=== PATIENT | female | born 1965 | race Caucasian/White ===

== ENCOUNTER 2016-03-11 08:16 | Day surgery (SDC) | payer BC ==
[2016-03-08 10:15] VITALS: BMI 27.1
[~2016-03-11 08:16] MED LIST: LACTATED RINGERS 1,000 ML IV SCH; LIDOCAINE 1% 20 ML VIAL (10MG/ML) FOR IV START INTRADERMA PRN
[2016-03-11 09:02] VITALS: TEMP 98.7
[2016-03-11] MEDS ORDERED: LIDOCAINE 1% INJ 10MG/ML (20 ML MDV) ONE (09:30)
[2016-03-11] MEDS ORDERED: PROPOFOL 10 MG/ML 20 ML VIAL IV ONE (09:30)
--- NOTE | 2016-03-11 10:03 | P.PCN ---
Date of Procedure: 03/11/16 Procedure(s) Performed: Procedures: 1. Esophagogastroduodenoscopy and biopsy. 2. Total colonoscopy. Preoperative diagnosis: Chronic reflux symptoms requiring continuous therapy and recent onset of nausea and screening for colon cancer. Preoperative diagnosis: 1. Small sliding hiatal hernia with no obvious esophagitis or complicated reflux disease. 2. Mild antral gastritis with no ulcers or gastric outlet obstruction. 3. Diverticulosis of the colon with no evidence of acute diverticulitis or strictures. 4. No polyps or tumors seen on this exam. Preparation: HalfLytely prep. Sedation: Was provided by anesthesia. Brief clinical history: The patient is a 50-year-old female who is referred for this evaluation for screening for colon neoplasia. In addition, she has been having issues with acid reflux for the last few years requiring ongoing therapy with PPI. She would have recurrece of her symptoms within a day or 2 if she does not take her medications. In addition, she has been having nausea for the last month or so with no other alarm symptoms. This would be her first upper endoscopy and her first colonoscopy. Procedure: With the patient on her left lateral decubitus position and after informed consent and adequate sedation, I passed the Olympus-GIF 160 video upper endoscope through the cricopharyngeus down the esophagus. GE junction was around 36 cm from the incisors and there was a small sliding hiatal hernia. The esophagus did not show any evidence of esophagitis or complicated reflux disease. The endoscope was then passed into the stomach which was insufflated with air and inspected in detail including the retroflex view in the cardia. There was some mottling and erythema in the antrum but no ulcers or erosions. Pyloric channel, duodenal bulb, post bulbar area and descending duodenum appeared essentially within normal limits. Because of her symptoms I obtained biopsies from the duodenum, antrum and esophagus then the endoscope was withdrawn and I proceeded to do colonoscopy. Perianal area did not show any fissures or fistulas. There were no masses felt on digital rectal examination. The Olympus CFQ 160L videocolonoscope was then inserted in the rectum in the usual fashion and advanced to the cecum. The mucosa appeared healthy. There were multiple diverticular orifices seen scattered mostly in the sigmoid but some around the hepatic flexure with no evidence of acute diverticulitis or strictures. No polyps or tumors were seen. I retroflexed endoscope in the rectum before the endoscope was withdrawn. The patient tolerated the procedure well. Plan: The patient was reassured. Discussed dietary measures. Will await biopsy results and make further plans based on her course. For screening for colon neoplasia, I am recommending repeat exam in 10 years. She will follow-up with you as planned.
[2016-03-11 10:10] VITALS: RESP 18
[2016-03-11 10:30] VITALS: BP 115/74; PULSE 67
== END 2016-03-11 10:42 | disposition home or self-care (01) ==
LOC: ORWHC2ENDO 08:16
DX: Z12.11 Encounter for screening for malignant neoplasm of colon (principal); K29.50 Unspecified chronic gastritis without bleeding; K21.0 Gastro-esophageal reflux disease with esophagitis; K44.9 Diaphragmatic hernia without obstruction or gangrene; K57.30 Diverticulosis of large intestine without perforation or abscess without bleeding; E78.5 Hyperlipidemia, unspecified; I10 Essential (primary) hypertension; Z79.1 Long term (current) use of non-steroidal anti-inflammatories (NSAID); Z79.899 Other long term (current) drug therapy; Z88.1 Allergy status to other antibiotic agents; Z88.0 Allergy status to penicillin; Z88.5 Allergy status to narcotic agent
CPT/HCPCS: 81025; 88305; 88312; 88342; 43239; J2001; J2704; G0121; 99153

== ENCOUNTER → 2016-08-13 | Outpatient (CLI) | payer BC ==
--- NOTE | 2016-08-16 11:09 | MM ---
Reason for exam: screening (asymptomatic). Last mammogram was performed 1 year ago. History: Patient is nulliparous. Benign right mammotome panel of the right breast, May 26, 2007. Reductions of both breasts, June 01, 2006. Taking hormonal contraceptives for 9 years beginning at age 43. Physical Findings: A clinical breast exam by your physician is recommended on an annual basis and results should be correlated with mammographic findings. MG Screening Mammo w CAD Bilateral CC and MLO view(s) were taken. Prior study comparison: August 08, 2015, bilateral MG screening mammo w CAD. July 26, 2014, bilateral MG screening mammo w CAD. June 22, 2013, bilateral digital screening mammo w/CAD. There are scattered fibroglandular densities. Finding #1: There is stable architectural distortion in the upper quadrant of the left breast. Finding #2: There are typically benign dystrophic, round calcifications in the left breast. Previous mammotome biopsy in the right breast. There is no discrete abnormality. ASSESSMENT: Benign, BI-RAD 2 RECOMMENDATION: Routine screening mammogram of both breasts in 1 year.
== END | disposition home or self-care (01) ==
LOC: RADMAMWWP 13:21
PROVIDERS: ATTEND Obstetrics & Gynecology
DX: Z12.31 Encounter for screening mammogram for malignant neoplasm of breast (principal)

== ENCOUNTER → 2017-09-13 | Outpatient (CLI) | payer BC ==
--- NOTE | 2017-09-14 12:44 | MM ---
Reason for exam: screening (asymptomatic). Last mammogram was performed 1 year and 1 month ago. History: Patient is postmenopausal and is nulliparous. Benign right mammotome panel of the right breast, May 26, 2007. Reductions of both breasts, June 01, 2006. Taking hormonal contraceptives for 9 years beginning at age 43. Physical Findings: A clinical breast exam by your physician is recommended on an annual basis and results should be correlated with mammographic findings. MG 3D Screening Mammo W/Cad Bilateral CC and MLO view(s) were taken. Prior study comparison: August 13, 2016, bilateral MG screening mammo w CAD. August 08, 2015, bilateral MG screening mammo w CAD. The breast tissue is heterogeneously dense. This may lower the sensitivity of mammography. There is no discrete abnormality. No significant changes when compared with prior studies. ASSESSMENT: Benign, BI-RAD 2 RECOMMENDATION: Routine screening mammogram of both breasts in 1 year.
== END | disposition home or self-care (01) ==
LOC: RADMAMWWP 13:50
PROVIDERS: ATTEND Obstetrics & Gynecology
DX: Z12.31 Encounter for screening mammogram for malignant neoplasm of breast (principal)
CPT/HCPCS: 77063; 77067

== ENCOUNTER → 2018-09-15 | Outpatient (CLI) | payer BC ==
--- NOTE | 2018-09-18 11:40 | MM ---
Reason for exam: screening (asymptomatic). Last mammogram was performed 1 year ago. History: Patient is postmenopausal and is nulliparous. Benign right mammotome panel of the right breast, May 26, 2007. Reductions of both breasts, June 01, 2006. Took hormonal contraceptives for 9 years beginning at age 43. Physical Findings: A clinical breast exam by your physician is recommended on an annual basis and results should be correlated with mammographic findings. MG Screening Mammo w CAD Bilateral CC and MLO view(s) were taken. Prior study comparison: September 13, 2017, bilateral MG 3d screening mammo w/cad. August 13, 2016, bilateral MG screening mammo w CAD. There are scattered fibroglandular densities. Post mammoplasty changes on both sides. New right upper outer quadrant focal asymmetry. ASSESSMENT: Incomplete: need additional imaging evaluation, BI-RAD 0 RECOMMENDATION: Special view mammogram of the right breast. (3D) If lesion persists on supplemental views, image directed ultrasound is recommended. [facility] will attempt to contact patient to return for supplemental views and ultrasound if indicated.
== END | disposition home or self-care (01) ==
LOC: RADMAMWWP 13:28
PROVIDERS: ATTEND Family Medicine
DX: Z12.31 Encounter for screening mammogram for malignant neoplasm of breast (principal)
CPT/HCPCS: 77067

== ENCOUNTER → 2018-09-27 | Outpatient (CLI) | payer BC ==
--- NOTE | 2018-09-28 10:38 | MM ---
Reason for exam: additional evaluation requested from abnormal screening. Last mammogram was performed less than 1 month ago. History: Patient is postmenopausal and is nulliparous. Benign right mammotome panel of the right breast, May 26, 2007. Reductions of both breasts, June 01, 2006. Took hormonal contraceptives for 9 years beginning at age 43. Physical Findings: Nurse did not find any significant physical abnormalities on exam. MG Work Up Mamm w CAD RT Spot compression CC, spot compression MLO, and ML view(s) were taken of the right breast. Prior study comparison: September 15, 2018, bilateral MG screening mammo w CAD. September 13, 2017, bilateral MG 3d screening mammo w/cad. There are scattered fibroglandular densities. Persistent right upper outer quadrant focal asymmetry 6-7cm from nipple. Ultrasound will be performed. These results were verbally communicated with the patient and result sheet given to the patient on 09/27/18. ASSESSMENT: Incomplete: need additional imaging evaluation, BI-RAD 0 RECOMMENDATION: Ultrasound of the right breast. (upper outer quadrant)
--- NOTE | 2018-09-28 10:41 | USB ---
Reason for exam: additional evaluation requested from abnormal screening. History: Patient is postmenopausal and is nulliparous. Benign right mammotome panel of the right breast, May 26, 2007. Reductions of both breasts, June 01, 2006. Took hormonal contraceptives for 9 years beginning at age 43. US Breast Workup Limited RT Right limited breast ultrasound including focal area of concern, retroareolar and axilla demonstrates a 6 x 5 x 6mm oval, solid, hypoechoic, hyperechoic lesion at 10 o'clock, biopsy recommended and a 6mm oval lymph node at the axilla tail. These results were verbally communicated with the patient and result sheet given to the patient on 09/27/18. ASSESSMENT: Suspicious, BI-RAD 4 RECOMMENDATION: Ultrasound core biopsy of the right breast. Called Dr. Mathis with mammographic findings. Biopsy scheduled for 10/16/18 at 12:20. PRELIMINARY REPORT CALLED AND FAXED TO DR. MATHIS ON 09/28/18.
== END | disposition home or self-care (01) ==
LOC: RADMAMWWP 14:45
PROVIDERS: ATTEND Family Medicine
DX: R92.8 Other abnormal and inconclusive findings on diagnostic imaging of breast (principal)
CPT/HCPCS: 77065

== ENCOUNTER → 2018-10-16 | Day surgery (SDC) | payer BC, OTHER ==
[2018-10-16 09:56] VITALS: TEMP 98.6; BMI 24.3
[2018-10-16 12:03] VITALS: BP 138/39; PULSE 73
--- NOTE | 2018-10-16 15:57 | USB ---
EXAMINATION TYPE: US biopsy breast VAD RT, Postbiopsy MG diagnostic mammo RT wo CAD DATE OF EXAM: 10/16/2018 CLINICAL HISTORY: 52-year-old female R92.8 ABN MAMMO. TECHNIQUE: Ultrasound guided core biopsy of the right breast. COMPARISON: 09/27/2018 and 09/15/2018 FINDINGS: The procedure of ultrasound guided core biopsy was explained to the patient. Benefits, alternatives, and risks were discussed. An informed consent was then obtained. The echogenic, partially cystic lesion at the 10:00 position zone B/C is redemonstrated. A second similar, smaller area is noted at the 10-10:30 position measuring 4 mm. The patient was further question about any blood thinner use or breast injury. Patient reports a recent fall injury and additional occasional injuries during horse riding. There is no blood thinner use. Decision was made to proceed with biopsy of the dominant lesion. The patient was placed in supine positioning for imaging and for the procedure. The overlying skin was prepped and draped in usual sterile fashion. Lidocaine was used as anesthetic into the skin and subcutaneous tissue up to area of concern in the 10:00 right breast. Under ultrasound guidance, a 13-gauge vacuum-assisted mammotome biopsy gun was used to obtain 5 core samples. Following this, a ribbon clip was left in lesion. The patient tolerated the procedure well without any immediate complication. The patient was kept in the radiology department for short stay after the procedure and then discharged home in stable condition. Postbiopsy mammogram shows clip at the site of mammographic abnormality at the 9 to 10:00 position. IMPRESSION: Successful, uncomplicated ultrasound guided core biopsy of area of concern in the 10:00 right breast, full pathology results to follow. RECOMMENDATION: 1. Follow-up pathology. If benign results with a specific diagnosis, six-month follow-up mammogram and ultrasound is recommended. If results suggest a small hematoma, three-month follow-up mammogram and ultrasound will be recommended. The similar, second smaller adjacent lesion seen on ultrasound should also be reassessed at that time. Pathology Results: Benign RIGHT BREAST, CORE BIOPSY: Fibrocystic changes including fibroadenomatoid hyperplasia and fibrosis. Negative for malignancy. Recommendation Follow up mammogram and ultrasound of the right breast in 6 months. CARINE
== END | disposition home or self-care (01) ==
LOC: RADUSWWP 09:14
PROVIDERS: ATTEND Family Medicine
DX: N60.11 Diffuse cystic mastopathy of right breast (principal)
CPT/HCPCS: 88305; 77065; 19083; A4648; J2001

== ENCOUNTER → 2019-12-10 | Outpatient (CLI) | payer OTHER ==
--- NOTE | 2019-12-11 13:54 | MM ---
Reason for exam: screening (asymptomatic). Last mammogram was performed 1 year and 2 months ago. History: Patient is postmenopausal and is nulliparous. Benign US biopsy breast VAD RT of the right breast, October 16, 2018. Benign right mammotome panel of the right breast, May 26, 2007. Reductions of both breasts, June 01, 2006. Took hormonal contraceptives for 9 years beginning at age 43. Physical Findings: A clinical breast exam by your physician is recommended on an annual basis and results should be correlated with mammographic findings. MG Screening Mammo w CAD Bilateral CC and MLO view(s) were taken. Prior study comparison: October 16, 2018, right breast MG diagnostic mammo RT wo CAD. September 27, 2018, right breast MG work up mamm w CAD RT. There are scattered fibroglandular densities. Stable benign calcifications. There is no discrete abnormality. No significant changes when compared with prior studies. ASSESSMENT: Benign, BI-RAD 2 RECOMMENDATION: Routine screening mammogram of both breasts in 1 year.
== END | disposition home or self-care (01) ==
LOC: RADMAMWWP 13:07
PROVIDERS: ATTEND Obstetrics & Gynecology
DX: Z12.31 Encounter for screening mammogram for malignant neoplasm of breast (principal)
CPT/HCPCS: 77067

== ENCOUNTER 2020-05-20 14:04 | Inpatient (IN) | payer OTHER ==
[2020-05-20] MEDS ORDERED: SODIUM CHLORIDE 0.9% 1,000 ML IV STA (14:09)
[2020-05-20 14:10] LABS: Glucose,Whole Blood 123 mg/dL (75-99)
--- NOTE | 2020-05-20 14:16 | ED ---
General Adult HPI - General Stated complaint: sycope Time Seen by Provider: 05/20/20 14:09 Source: patient, EMS, RN notes reviewed, old records reviewed Mode of arrival: EMS Limitations: no limitations - History of Present Illness Initial comments: 54-year-old female presents for evaluation of altered level consciousness, slurred speech, and near syncope. Patient was on local television, B recorded, she had an episode where she became dysarthric, and nearly passed out. She states that she did feel lightheaded prior to this. She is completely asymptomatic at the time my evaluation. She denies chest pain or palpitations. She denies fever or chills. She denies headache. Denies focal numbness or weakness. Patient is otherwise healthy. Symptoms lasted only briefly and will resolve during transport by EMS. - Related Data Home Medications Medication Instructions Recorded Confirmed Omeprazole 40 mg PO AC-BRKFST 08/01/15 05/20/20 Simvastatin [Zocor] 20 mg PO DAILY 08/01/15 05/20/20 Atenolol [Tenormin] 50 mg PO DAILY 05/20/20 05/20/20 Losartan Potassium [Cozaar] 100 mg PO DAILY 05/20/20 05/20/20 Venlafaxine HCl [Effexor XR] 75 mg PO BID 05/20/20 05/20/20 busPIRone HCL 15 mg PO BID 05/20/20 05/20/20 hydroCHLOROthiazide 25 mg PO DAILY 05/20/20 05/20/20 Allergies Allergy/AdvReac Type Severity Reaction Status Date / Time morphine Allergy Itching Verified 05/20/20 15:14 Penicillins Allergy Itching Verified 05/20/20 15:14 ciprofloxacin [From Cipro] AdvReac Unknown Nausea Verified 05/20/20 15:14 Review of Systems ROS Statement: Those systems with pertinent positive or pertinent negative responses have been documented in the HPI. ROS Other: All systems not noted in ROS Statement are negative. Past Medical History Past Medical History: GERD/Reflux, Hyperlipidemia, Hypertension Additional Past Medical History / Comment(s): hypothyroidism (resolved with 40 pound weight loss) History of Any Multi-Drug Resistant Organisms: None Reported Past Surgical History: Breast Surgery, Uterine Ablation Additional Past Surgical History / Comment(s): bilateral breast reduction x2, bone spur right hip, panniculectomy Past Anesthesia/Blood Transfusion Reactions: No Reported Reaction Additional Past Anesthesia/Blood Transfusion Reaction / Comment(s): NO blood transfusion to date Past Psychological History: Depression Smoking Status: Never smoker Past Alcohol Use History: Daily Past Drug Use History: Marijuana - Past Family History Mother Family Medical History: Cancer Additional Family Medical History / Comment(s): at age 63 from LUNG CANCER General Exam Limitations: no limitations General appearance: alert, in no apparent distress Head exam: Present: atraumatic, normocephalic Eye exam: Present: normal appearance, PERRL, EOMI ENT exam: Present: mucous membranes dry Neck exam: Present: normal inspection. Absent: tenderness, meningismus Respiratory exam: Present: normal lung sounds bilaterally. Absent: respiratory distress, wheezes Cardiovascular Exam: Present: regular rate, normal rhythm GI/Abdominal exam: Present: soft. Absent: distended, tenderness, guarding Extremities exam: Present: normal inspection, normal capillary refill. Absent: pedal edema Neurological exam: Present: alert, oriented X3, CN II-XII intact. Absent: motor sensory deficit Psychiatric exam: Present: normal affect, normal mood Skin exam: Present: warm, dry, intact. Absent: cyanosis, diaphoretic Course Vital Signs 05/20/20 05/20/20 14:05 15:00 Temperature 97.9 F Pulse Rate 68 70 Respiratory 18 18 Rate Blood Pressure 142/89 128/86 O2 Sat by Pulse 100 98 Oximetry EKG Findings - EKG Comments: EKG Findings:: EKG: Normal sinus rhythm, rate 68, WI interval 146, QRS duration 90, QTC 444, there is T-wave inversion in lead 3 Medical Decision Making - Medical Decision Making 54-year-old female presenting with altered level consciousness, slurred speech. I was able to wash the video, and there was an acute change in this patient's mental status, she states she felt lightheaded prior to this. This may been near syncope versus TIA. Her symptoms have completely resolved. Head CT negative for intracranial hemorrhage or mass effect. EKG is sinus rhythm. She has elected abnormality including hyponatremia, hypokalemia. These are both replaced with IV and oral medication. She does admit to daily alcohol consumption. Additionally she's had nausea vomiting after coronavirus vaccine. She has no abdominal pain. She will be admitted with both cardiology and neurology on consult. Echo has been ordered. She will be monitored on telemetry. Case discussed with Dr. Hester who will admit. - Lab Data Result diagrams: 05/20/20 14:12 05/20/20 14:12 Lab Results 05/20/20 05/20/20 05/20/20 Range/Units 14:07 14:12 14:12 WBC 8.0 (3.8-10.6) k/uL RBC 4.07 (3.80-5.40) m/uL Hgb 13.6 (11.4-16.0) gm/dL Hct 37.3 (34.0-46.0) % MCV 91.6 (80.0-100.0) fL MCH 33.3 (25.0-35.0) pg MCHC 36.3 (31.0-37.0) g/dL RDW 11.8 (11.5-15.5) % Plt Count 319 (150-450) k/uL MPV 6.7 Neutrophils % 63 % Lymphocytes % 27 % Monocytes % 7 % Eosinophils % 1 % Basophils % 1 % Neutrophils # 5.1 (1.3-7.7) k/uL Lymphocytes # 2.2 (1.0-4.8) k/uL Monocytes # 0.6 (0-1.0) k/uL Eosinophils # 0.1 (0-0.7) k/uL Basophils # 0.1 (0-0.2) k/uL PT 10.1 (9.0-12.0) sec INR 0.9 (<1.2) APTT 22.7 (22.0-30.0) sec Sodium (137-145) mmol/L Potassium (3.5-5.1) mmol/L Chloride (98-107) mmol/L Carbon Dioxide (22-30) mmol/L Anion Gap mmol/L BUN (7-17) mg/dL Creatinine (0.52-1.04) mg/dL Est GFR (CKD-EPI)AfAm (>60 ml/min/1.73 sqM) Est GFR (CKD-EPI)NonAf (>60 ml/min/1.73 sqM) Glucose (74-99) mg/dL POC Glucose (mg/dL) 123 H (75-99) mg/dL POC Glu Pie Filling Mixer ID [id number] Rosa Calcium (8.4-10.2) mg/dL Total Bilirubin (0.2-1.3) mg/dL AST (14-36) U/L ALT (4-34) U/L Alkaline Phosphatase (38-126) U/L Troponin I (0.000-0.034) ng/mL Total Protein (6.3-8.2) g/dL Albumin (3.5-5.0) g/dL 05/20/20 05/20/20 Range/Units 14:12 14:12 WBC (3.8-10.6) k/uL RBC (3.80-5.40) m/uL Hgb (11.4-16.0) gm/dL Hct (34.0-46.0) % MCV (80.0-100.0) fL MCH (25.0-35.0) pg MCHC (31.0-37.0) g/dL RDW (11.5-15.5) % Plt Count (150-450) k/uL MPV Neutrophils % % Lymphocytes % % Monocytes % % Eosinophils % % Basophils % % Neutrophils # (1.3-7.7) k/uL Lymphocytes # (1.0-4.8) k/uL Monocytes # (0-1.0) k/uL Eosinophils # (0-0.7) k/uL Basophils # (0-0.2) k/uL PT (9.0-12.0) sec INR (<1.2) APTT (22.0-30.0) sec Sodium 119 L* (137-145) mmol/L Potassium 2.9 L (3.5-5.1) mmol/L Chloride 81 L (98-107) mmol/L Carbon Dioxide 26 (22-30) mmol/L Anion Gap 12 mmol/L BUN 17 (7-17) mg/dL Creatinine 0.81 (0.52-1.04) mg/dL Est GFR (CKD-EPI)AfAm >90 (>60 ml/min/1.73 sqM) Est GFR (CKD-EPI)NonAf 84 (>60 ml/min/1.73 sqM) Glucose 116 H (74-99) mg/dL POC Glucose (mg/dL) (75-99) mg/dL POC Glu Pie Filling Mixer ID Calcium 9.7 (8.4-10.2) mg/dL Total Bilirubin 0.8 (0.2-1.3) mg/dL AST 119 H (14-36) U/L ALT 80 H (4-34) U/L Alkaline Phosphatase 82 (38-126) U/L Troponin I <0.012 (0.000-0.034) ng/mL Total Protein 7.3 (6.3-8.2) g/dL Albumin 4.5 (3.5-5.0) g/dL Critical Care Time Critical Care Time: Yes Total Critical Care Time: 35 Disposition Clinical Impression: Dehydration, Syncope, Hyponatremia, TIA (transient ischemic attack) Disposition: ADMITTED IP TO THIS [facility] Condition: Stable Is patient prescribed a controlled substance at d/c from ED?: No Referrals: Zev Mathis MD [Primary Care Provider] - 1-2 days Decision to Admit Reason: Admit from EC Decision Date: 05/20/20 Decision Time: 15:31
[2020-05-20 14:24] LABS: Basophils # (A) 0.1 k/uL (0-0.2); Basophils % (A) 1 %; Eosinophils # (A) 0.1 k/uL (0-0.7); Eosinophils % (A) 1 %; HCT 37.3 % (34.0-46.0); HGB 13.6 gm/dL (11.4-16.0); Lymphocytes # (A) 2.2 k/uL (1.0-4.8); Lymphocytes % (A) 27 %; MCH 33.3 pg (25.0-35.0); MCHC 36.3 g/dL (31.0-37.0); MCV 91.6 fL (80.0-100.0); Mean Platelet Volume 6.7; Monocytes # (A) 0.6 k/uL (0-1.0); Monocytes % (A) 7 %; Neutrophils # (A) 5.1 k/uL (1.3-7.7); Neutrophils % (A) 63 %; Platelet Count 319 k/uL (150-450); RBC 4.07 m/uL (3.80-5.40); RDW 11.8 % (11.5-15.5)
--- NOTE | 2020-05-20 14:39 | XR ---
EXAMINATION TYPE: XR chest 2V DATE OF EXAM: 05/20/2020 COMPARISON: NONE HISTORY: Weakness and loss of speech. TECHNIQUE: Frontal and lateral views of the chest are obtained. FINDINGS: There is no focal air space opacity, pleural effusion, or pneumothorax seen. Overlying EKG leads are present. The cardiac silhouette size is within normal limits. The osseous structures ar e intact. IMPRESSION: No acute cardiopulmonary process.
--- NOTE | 2020-05-20 14:39 | CT ---
EXAMINATION TYPE: CT brain wo con for TPA DATE OF EXAM: 05/20/2020 HISTORY: Near syncopal episode with vomiting today. CT DLP: 1078.4 mGycm. Automated Exposure Control for Dose Reduction was Utilized. TECHNIQUE: CT scan of the head is performed without contrast. COMPARISON: None. FINDINGS: There is no acute intracranial hemorrhage or midline shift identified. There is mild diff use ventricular and sulcal prominence consistent with diffuse age-related cerebral atrophy. There is mild low-attenuation in the periventricular white matter consistent with chronic small vessel ischem ic change. No suspicious opacification mastoid air cells bilaterally. The globes are intact and the visualized sinuses are clear. Recruiting Manager image shows grade 1 retrolisthesis C4 on C5 with moderate to sev ere disc space narrowing and spurring. IMPRESSION: No acute intracranial hemorrhage or midline shift. There is mild diffuse age-related ce rebral atrophy and chronic small vessel ischemic change noted.
[2020-05-20 14:40] LABS: ALT 80 U/L (4-34); AST 119 U/L (14-36); African American GFR (CKD) >90 (>60 ml/min/1.73 sqM); Albumin 4.5 g/dL (3.5-5.0); Alkaline Phosphatase 82 U/L (38-126); Anion Gap 12 mmol/L; Blood Urea Nitrogen 17 mg/dL (7-17); Calcium 9.7 mg/dL (8.4-10.2); Carbon Dioxide 26 mmol/L (22-30); Chloride 81 mmol/L (98-107); Glucose 116 mg/dL (74-99); Non-African American GFR(CKD) 84 (>60 ml/min/1.73 sqM); Potassium 2.9 mmol/L (3.5-5.1); Total Bilirubin 0.8 mg/dL (0.2-1.3); Total Protein 7.3 g/dL (6.3-8.2)
[2020-05-20 14:43] LABS: INR 0.9 (<1.2); Partial Thromboplastin Time 22.7 sec (22.0-30.0); Prothrombin Time 10.1 sec (9.0-12.0)
[2020-05-20 14:48] LABS: Sodium 119 mmol/L (137-145)
[2020-05-20] MEDS ORDERED: ASPIRIN 325 MG TAB PO STA (15:08)
[2020-05-20] MEDS ORDERED: POTASSIUM CHLORIDE ER 20 MEQ TAB.ER PO STA (15:11)
[2020-05-20] MEDS ORDERED: ACETAMINOPHEN TAB 325 MG TAB PO PRN (15:26)
[2020-05-20] MEDS ORDERED: LORazepam 2 MG/ML INJ IV PRN ×2 (15:26)
[2020-05-20] MEDS ORDERED: NALOXONE 0.4 MG/ML 1 ML VIAL IV PRN (15:26)
[2020-05-20] MEDS ORDERED: THIAMINE 100 MG/ML 2 ML VIAL IM STA (15:26)
[2020-05-20] MEDS: POTASSIUM CHLORIDE 10 MEQ in WATER FOR INJECTION 1 100ML.BAG IVPB SCH ×2 (15:55→18:38)
[2020-05-20] MEDS: SODIUM CHLORIDE 0.9% 1,000 ML IV SCH (15:55)
[2020-05-20 17:25] LABS: Appearance,Urine Cloudy (Clear); Bacteria,Urine Occasional /hpf; Bilirubin,Urine Negative (Negative); Blood,Urine Trace (Negative); Color,Urine Light Yellow; Glucose,Urine (UA) Negative (Negative); Ketones,Urine Negative (Negative); Leukocyte Esterase,Urine Large (Negative); Nitrite,Urine Negative (Negative); PH, Urine 6.5 (5.0-8.0); Protein,Urine Negative (Negative); RBC,Urine 6 /hpf (0-5); Specific Gravity,Urine 1.009 (1.001-1.035); Squamous Epithelial Cell,Urine 2 /hpf (0-4); Urobilinogen,Urine <2.0 mg/dL (<2.0); WBC,Urine >182 /hpf (0-5)
[2020-05-20] MEDS ORDERED: MAGNESIUM SULFATE-D5W PMX 1 GM in DEXTROSE/WATER 1 100ML.BAG IVPB ONE (17:45)
[2020-05-20] MEDS ORDERED: cefTRIAXone IN SWFI 1,000 MG/10 ML SYRINGE IVP STA (17:45)
[2020-05-20] MEDS: THIAMINE 100 MG TAB PO SCH (18:25)
--- NOTE | 2020-05-20 19:54 | US ---
EXAMINATION TYPE: US carotid duplex BILAT DATE OF EXAM: 05/20/2020 COMPARISON: CT CLINICAL HISTORY: syncope vs TIA. Syncope versus TIA. Hx hypertension, hyperlipidemia. EXAM MEASUREMENTS: RIGHT: Peak Systolic Velocity (PSV) cm/sec ----- Right CCA: 56.1 ----- Right ICA: 63.1 ----- Right ECA: 79.7 ICA/CCA ratio: 1.1 RIGHT: End Diastole cm/sec ----- Right CCA: 21.2 ----- Right ICA: 27.3 ----- Right ECA: 18.6 LEFT: Peak Systolic Velocity (PSV) cm/sec ----- Left CCA: 80.6 ----- Left ICA: 89.7 ----- Left ECA: 50.0 ICA/CCA ratio: 1.1 LEFT: End Diastole cm/sec ----- Left CCA: 25.6 ----- Left ICA: 36.6 ----- Left ECA: 13.3 VERTEBRALS (direction of flow): Right Vertebral: Antegrade Left Vertebral: Antegrade Rhythm: Normal Intimal thickening bilaterally. Plaque seen within bilateral bifurcations. No elevated velocities at this time. Left ICA appears to be tortuous. IMPRESSION: No hemodynamically significant stenosis of the bilateral ICAs. Criteria for Assigning % of Stenosis / Diameter reduction (Estimation based on the indirect measurements of the internal carotid artery velocities (ICA PSV). 1. Normal (no stenosis)=ICA PSV < 125 cm/s: ratio < 2.0: ICA EDV<40 cm/s. 2. Less than 50% stenosis=ICA PSV < 125 cm/s: ratio < 2.0: ICA EDV<40 cm/s. 3. 50 to 69% stenosis=ICA PSV of 125 to 230 cm/s: ration 2.0 ? 4.0: ICA EDV 40-100 cm/s. 4. Greater than 70% stenosis to near occlusion= ICA PSV > 230 cm/s: ratio > 4.0: ICA EDV > 100 cm/s. 5. Near occlusion= ICA PSV velocities may be low or undetectable: variable ratio and ICA EDV. 6. Total occlusion=unable to detect flow.
[2020-05-20] MEDS: LORazepam 2 MG/ML INJ IV PRN (21:29)
[2020-05-20] MEDS: VENLAFAXINE HCL ER 75 MG CAP PO SCH (23:24)
[2020-05-20] MEDS: busPIRone HCl 5 MG TAB PO SCH (23:25)
[2020-05-20] MEDS: ENOXAPARIN 40 MG/0.4 ML SYRINGE SQ SCH (23:26)
[2020-05-21] MEDS: LORazepam 2 MG/ML INJ IV PRN (05:44)
[2020-05-21] MEDS: SODIUM CHLORIDE 0.9% 1,000 ML IV SCH ×2 (05:44→18:17)
[2020-05-21] MEDS ORDERED: PANTOPRAZOLE 40 MG TABLET PO SCH (07:30)
[2020-05-21] MEDS: ENOXAPARIN 40 MG/0.4 ML SYRINGE SQ SCH (07:55)
[2020-05-21] MEDS: busPIRone HCl 5 MG TAB PO SCH (07:56)
[2020-05-21] MEDS: THIAMINE 100 MG TAB PO SCH ×2 (07:56→16:20)
[2020-05-21] MEDS: VENLAFAXINE HCL ER 75 MG CAP PO SCH (08:29)
[2020-05-21] MEDS ORDERED: ATORVASTATIN 10 MG TAB PO SCH (09:00)
[2020-05-21] MEDS ORDERED: atenoloL 50 MG TAB PO SCH (09:00)
[2020-05-21] MEDS ORDERED: hydroCHLOROthiazide 25 MG TAB PO SCH (09:00)
[2020-05-21] MEDS ORDERED: LOSARTAN 50 MG TAB PO SCH (09:00)
--- NOTE | 2020-05-21 10:22 | P.CRDCN ---
History of Present Illness History of present illness: HISTORY OF PRESENTING ILLNESS This is a pleasant 54-year-old female past medical history significant for hypertension and hyperlipidemia.. She does not follow with a home health nurse. We have been asked to see in consultation for syncope. Patient states she received her covid-19 vaccine last week and for 4 days felt ill. She experienced fever, nausea and vomiting for 4 days. After the 4 days she states she continued to have nausea and vomiting. Yesterday she was on a Zoom interview call, she began to feel very warm and lightheaded. She states she was told she was staring at the screen had some slurred speech and was not responding. Patient states that "everything went black". EMS was called, patient states she was laid down on the floor, and IV was started and she was brought to the emergency room. Symptoms resolved during transport by EMS. Patient is seen and examined in the emergency department no acute distress. Patient denies ever having an episode that this before. She denies chest pain, palpitations, shortness of breath, fatigue, weakness. She denies history of diabetes, stroke, [place]. Current cardiac medications include atenolol 50 mg daily, atorvastatin 10 mg daily, losartan 100 mg daily, hydrochlorothiazide 25 mg daily.Patients states she is compliant with medication. Patient denies tobacco use, alcohol use, illicit drug use. EKG reveals normal sinus rhythm, T-wave inversions in lead III and aVF, similar to prior EKG in 2016 and 2019. Chest xray no acute cardiopulmonary process. CT of the brain no acute intracranial hemorrhage or midline shift. Mild diffuse age- related cerebral atrophy and chronic small vessel ischemic change noted. Caroti d Dopplers showed no significant stenosis of the bilateral internal carotid arteries. Laboratory reviewed, sodium 119, potassium 2.9, renal function stable creatinine 0.81, BUN 17, magnesium 1.3, AST 119, PLT 80, troponin negative 1, WBC 8, hemoglobin 13.6, platelets 319. Vital signs blood pressure 109/74, heart rate 75, maintaining oxygen saturation is on room air, afebrile. REVIEW OF SYSTEMS At the time of my exam: CONSTITUTIONAL: Denies fever or chills. CARDIOVASCULAR: Denies chest pain, shortness of breath, orthopnea, PND or palpitations. RESPIRATORY: Denies cough. GASTROINTESTINAL: Denies abdominal pain, diarrhea, constipation, nausea or vomiting. MUSCULOSKELETAL: Denies myalgias. NEUROLOGIC: +altered mental status, +lightheadedness Denies numbness, tingling, headacbe or weakness. ENDOCRINE: Denies fatigue, weight change, polydipsia or polyurina. GENITOURINARY: Denies burning, hematuria or urgency with micturation. HEMATOLOGIC: Denies history of anemia or bleeding. PHYSICAL EXAMINATION CONSTITUTIONAL: No apparent distress. HEENT: Head is normocephalic. Pupils are equal, round. Sclerae anicteric. Mucous membranes of the mouth are moist. No JVD. No carotid bruit. CHEST EXAMINATION: Lungs are clear to auscultation. No chest wall tenderness is noted on palpation or with deep breathing. HEART EXAMINATION: Regular rate and rhythm. S1, S2 heard. No murmurs, gallops or rub. ABDOMEN: Soft, nontender. Positive bowel sounds. EXTREMITIES: 2+ peripheral pulses, no lower extremity edema and no calf tenderness. SKIN: intact NEUROLOGIC EXAMINATION: Patient is awake, alert and oriented x3. ASSESSMENT Altered mental status and syncope vs presyncope - possibly related to el ectrolyte abnormalities Hypomagnesia Hypokalemia Hyponatremia History of Hypertension PLAN -2D echo ordered -Replace electrolytes and continue to monitor BMP daily -Continue cardiac monitoring -Repeat one more troponin -Resume home cardiac medications. -Will continue to follow patient and make recommendations based on hospital course. Nurse Practitioner note has been reviewed, I agree with a documented findings and plan of care. Patient was seen and examined. Past Medical History Past Medical History: GERD/Reflux, Hyperlipidemia, Hypertension Additional Past Medical History / Comment(s): hypothyroidism (resolved with 40 pound weight loss) History of Any Multi-Drug Resistant Organisms: None Reported Past Surgical History: Breast Surgery, Uterine Ablation Additional Past Surgical History / Comment(s): bilateral breast reduction x2, bone spur right hip, panniculectomy Past Anesthesia/Blood Transfusion Reactions: No Reported Reaction Additional Past Anesthesia/Blood Transfusion Reaction / Comment(s): NO blood transfusion to date Past Psychological History: Depression Smoking Status: Never smoker Past Alcohol Use History: Daily Past Drug Use History: Marijuana - Past Family History Mother Family Medical History: Cancer Additional Family Medical History / Comment(s): at age 63 from LUNG CANCER Father Family Medical History: Hypertension Medications and Allergies Home Medications Medication Instructions Recorded Confirmed Type Omeprazole 40 mg PO -KT 08/01/15 05/20/20 History Simvastatin [Zocor] 20 mg PO DAILY 08/01/15 05/20/20 History Atenolol [Tenormin] 50 mg PO DAILY 05/20/20 05/20/20 History Losartan Potassium [Cozaar] 100 mg PO DAILY 05/20/20 05/20/20 History Venlafaxine HCl [Effexor XR] 75 mg PO BID 05/20/20 05/20/20 History busPIRone HCL 15 mg PO BID 05/20/20 05/20/20 History hydroCHLOROthiazide 25 mg PO DAILY 05/20/20 05/20/20 History Allergies Allergy/AdvReac Type Severity Reaction Status Date / Time morphine Allergy Itching Verified 05/20/20 15:14 Penicillins Allergy Itching Verified 05/20/20 15:14 sulfamethoxazole Allergy Unknown Verified 05/20/20 22:08 [From Bactrim] trimethoprim [From Bactrim] Allergy Unknown Verified 05/20/20 22:08 ciprofloxacin [From Cipro] AdvReac Unknown Nausea Verified 05/20/20 15:14 Physical Exam Vitals: Vital Signs Temp Pulse Resp BP Pulse Ox 05/21/20 02:27 75 18 109/74 98 05/20/20 23:27 98.1 F 72 16 131/91 100 05/20/20 22:15 98.5 F 77 16 132/94 100 05/20/20 21:46 86 16 98 05/20/20 18:28 98.5 F 80 18 156/103 98 05/20/20 16:00 67 18 128/86 99 05/20/20 15:00 70 18 128/86 98 05/20/20 14:05 97.9 F 68 18 142/89 100 Results 05/20/20 14:12 05/20/20 14:12 Cardiac Enzymes 05/20/20 05/20/20 Range/Units 14:12 14:12 AST 119 H (14-36) U/L Troponin I <0.012 (0.000-0.034) ng/mL Coagulation 05/20/20 Range/Units 14:12 PT 10.1 (9.0-12.0) sec APTT 22.7 (22.0-30.0) sec CBC 05/20/20 Range/Units 14:12 WBC 8.0 (3.8-10.6) k/uL RBC 4.07 (3.80-5.40) m/uL Hgb 13.6 (11.4-16.0) gm/dL Hct 37.3 (34.0-46.0) % Plt Count 319 (150-450) k/uL Comprehensive Metabolic Panel 05/20/20 Range/Units 14:12 Sodium 119 L* (137-145) mmol/L Potassium 2.9 L (3.5-5.1) mmol/L Chloride 81 L (98-107) mmol/L Carbon Dioxide 26 (22-30) mmol/L BUN 17 (7-17) mg/dL Creatinine 0.81 (0.52-1.04) mg/dL Glucose 116 H (74-99) mg/dL Calcium 9.7 (8.4-10.2) mg/dL AST 119 H (14-36) U/L ALT 80 H (4-34) U/L Alkaline Phosphatase 82 (38-126) U/L Total Protein 7.3 (6.3-8.2) g/dL Albumin 4.5 (3.5-5.0) g/dL Current Medications Generic Name Dose Route Start Last Admin Trade Name Freq PRN Reason Stop Dose Admin Acetaminophen 650 mg 05/20/20 15:26 Acetaminophen Tab 325 Mg Tab PO Q6HR PRN Mild Pain or Fever > 100.5 Atenolol 50 mg 05/21/20 09:00 Atenolol 50 Mg Tab PO DAILY [facility] Atorvastatin Calcium 10 mg 05/21/20 09:00 Atorvastatin 10 Mg Tab PO DAILY [facility] Buspirone HCl 15 mg 05/20/20 21:00 05/20/20 23:25 Buspirone Hcl 5 Mg Tab PO 15 mg BID [facility] Administration Enoxaparin Sodium 40 mg 05/20/20 20:30 05/20/20 23:26 Enoxaparin 40 Mg/0.4 Ml Syringe SQ 40 mg DAILY [facility] Administration Hydrochlorothiazide 25 mg 05/21/20 09:00 Hydrochlorothiazide 25 Mg Tab PO DAILY [facility] Sodium Chloride 1,000 mls @ 75 mls/hr 05/20/20 15:15 05/21/20 05:44 Saline 0.9% IV 75 mls/hr .[id number] [facility] Administration Lorazepam 1 mg 05/20/20 15:26 05/21/20 05:44 Lorazepam 2 Mg/Ml Inj IV 1 mg Q2HR PRN Administration CIWA 8 or 9 Lorazepam 1 mg 05/20/20 15:26 05/20/20 23:01 Lorazepam 2 Mg/Ml Inj IV 1 mg Q1HR PRN Administration CIWA 10 to 15 Lorazepam 2 mg 05/20/20 15:26 Lorazepam 2 Mg/Ml Inj IV 05/22/20 15:26 Q10M PRN CIWA 16 or higher Losartan Potassium 100 mg 05/21/20 09:00 Losartan 50 Mg Tab PO DAILY [facility] Naloxone HCl 0.2 mg 05/20/20 15:26 Naloxone 0.4 Mg/Ml 1 Ml Vial IV Q2M PRN Opioid Reversal Pantoprazole Sodium 40 mg 05/21/20 07:30 Pantoprazole 40 Mg Tablet PO AC-BRKFST [facility] Thiamine HCl 100 mg 05/20/20 17:30 05/20/20 18:25 Thiamine 100 Mg Tab PO 100 mg BID-W/MEALS [facility] Administration Venlafaxine HCl 75 mg 05/20/20 21:00 05/20/20 23:24 Venlafaxine Hcl Er 75 Mg Cap PO 75 mg BID [facility] Administration 05/20/20 14:12 05/20/20 14:12
--- NOTE | 2020-05-21 10:42 | ECHOF ---
Referral Reason:syncope MEASUREMENTS -------- HEIGHT: 170.2 cm WEIGHT: 74.8 kg BP: 109/74 RVIDd: 2.6 cm (< 3.3) IVSd: 0.9 cm (0.6 - 1.1) LVIDd: 4.6 cm (3.9 - 5.3) LVPWd: 1.1 cm (0.6 - 1.1) IVSs: 1.6 cm LVIDs: 2.0 cm LVPWs: 1.9 cm LAESV Index (A-L): 21.00 ml/m Ao Diam: 3.1 cm (2.0 - 3.7) AV Cusp: 1.7 cm (1.5 - 2.6) LA Diam: 3.3 cm (2.7 - 3.8) MV EXCURSION: 12.148 mm (> 18.000) MV EF SLOPE: 83 mm/s (70 - 150) EPSS: 0.5 cm MV E Jaycob: 0.91 m/s MV DecT: 243 ms MV A Jaycob: 0.55 m/s MV E/A Ratio: 1.66 RAP: 5.00 mmHg RVSP: 28.65 mmHg FINDINGS -------- This was a technically adequate study. The left ventricular size is normal. Left ventricular wall thickness is normal. Overall left vent ricular systolic function is normal with, an EF between 55 - 60 %. The diastolic filling pattern is normal for the age of the patient 11.01. The right ventricle is normal in size. The left atrial size is normal. Normal LA size by volume 22+/-6 ml/m2. The right atrial size is normal. Interatrial and interventricular septum intact. The aortic valve is trileaflet and appears structurally normal. The mitral valve is normal. Mild mitral regurgitation is present. The tricuspid valve appears structurally normal. Mild tricuspid regurgitation present. Right vent ricular systolic pressure is normal at < 35 mmHg. There is no pulmonic regurgitation present. The aortic root size is normal. Normal inferior vena cava with normal inspiratory collapse consistent with estimated right atrial pre ssure of 5 mmHg. There is no pericardial effusion. CONCLUSIONS -------- 1. The left ventricular size is normal. 2. Left ventricular wall thickness is normal. 3. Overall left ventricular systolic function is normal with, an EF between 55 - 60 %. 4. The diastolic filling pattern is normal for the age of the patient 11.01 5. Mild mitral regurgitation is present. 6. Mild tricuspid regurgitation present. BLADE BENDER FURNACE TENDER: Kika Pham RDCS
[2020-05-21 10:56] VITALS: RESP 16
[2020-05-21 11:41] LABS: African American GFR (CKD) >90 (>60 ml/min/1.73 sqM); Alcohol <10 mg/dL; Anion Gap 7 mmol/L; Blood Urea Nitrogen 11 mg/dL (7-17); Calcium 9.2 mg/dL (8.4-10.2); Carbon Dioxide 29 mmol/L (22-30); Chloride 94 mmol/L (98-107); Glucose 135 mg/dL (74-99); Magnesium 1.5 mg/dL (1.6-2.3); Non-African American GFR(CKD) >90 (>60 ml/min/1.73 sqM); Sodium 130 mmol/L (137-145)
[2020-05-21] MEDS ORDERED: POTASSIUM CHLORIDE ER 20 MEQ TAB.ER PO STA (12:30)
--- NOTE | 2020-05-21 14:13 | P.CNNES ---
History of Present Illness Consult date: 05/21/20 Requesting physician: Jorge Whitmore Reason for Consult: Syncope History of Present Illness: Patient is a 54-year-old female came to the hospital yesterday at 2:04 PM by ambulance for a near syncopal spell. 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 She suddenly felt darkness in the vision, and felt will pass out, at that time she stopped talking, almost froze and then she started rambling with slurring of speech and did not make sense. She was disoriented. She had to be removed off the chair and then she vomited. Patient never lost consciousness. Patient was brought to the hospital. Vital signs on arrival blood pressure 142/89, pulse rate 68, temperature 97.9. CT head showed no acute intracranial hemorrhage or midline shift. There is mild diffuse age-related cerebral atrophy and chronic small vessel ischemic change. Chest x-ray is normal, EKG shows normal sinus rhythm. Carotid Doppler showed no hemodynamically significant stenosis. CBC normal, PT/PTT normal, sodium 119, potassium 2.9, normal renal functions. AST is 119, ALT 80. Troponin negative. UA shows large amount of leukocyte Estrace, greater than 182 WBCs. Lopez virus PCR negative. Patient states that she drinks 5 drinks of vodka every day since age 31. Does not smoke although smokes marijuana occasionally. Patient states that on 05/09/2020 she received a second shot of Covid vaccine. For 4 days she was down, with fever, chills, nausea vomiting diarrhea tiredness sometimes headaches. After 4 days her flulike symptoms improved, but she was still having vomiting almost every day. She would vomiting suddenly, also has been feeling slightly dizzy but no vertigo. She has difficulty with sleeping since she received a vaccination. Patient states that she did suffer from acute Covid infection a year ago, in April 2019 and she was really sick for 2 weeks and then took another one month to fully recover. Her symptoms after the accident patient was almost similar to her acute infection. Patient at present feels fine. Review of Systems As mentioned above in HPI. All other review of systems completely unremarkable. Patient did not bite her tongue or lost control of urine with this event. Patient never has any history of seizures. Past Medical History Past Medical History: GERD/Reflux, GI Bleed, Hyperlipidemia, Hypertension Additional Past Medical History / Comment(s): Lower GI bleed, colitis, DDD, chronic low back pain, hypothyroidism (resolved with 40 pound weight loss) History of Any Multi-Drug Resistant Organisms: None Reported Past Surgical History: Breast Surgery, Joint Replacement, Orthopedic Surgery, Uterine Ablation Additional Past Surgical History / Comment(s): bilateral breast reduction x2, bone spur right hip, R hip arthroplasty, panniculectomy, D&C with ut. ablation, colonoscopy, lumbar epidural injections Past Anesthesia/Blood Transfusion Reactions: No Reported Reaction Additional Past Anesthesia/Blood Transfusion Reaction / Comment(s): NO blood transfusion to date Smoking Status: Never smoker - Past Family History Mother Family Medical History: Cancer Additional Family Medical History / Comment(s): at age 63 from LUNG CANCER Father Family Medical History: Hypertension Medications and Allergies Home Medications Medication Instructions Recorded Confirmed Type Omeprazole 40 mg PO AC-BRKFST 08/01/15 05/20/20 History Simvastatin [Zocor] 20 mg PO DAILY 08/01/15 05/20/20 History Atenolol [Tenormin] 50 mg PO DAILY 05/20/20 05/20/20 History Losartan Potassium [Cozaar] 100 mg PO DAILY 05/20/20 05/20/20 History Venlafaxine HCl [Effexor XR] 75 mg PO BID 05/20/20 05/20/20 History busPIRone HCL 15 mg PO BID 05/20/20 05/20/20 History hydroCHLOROthiazide 25 mg PO DAILY 05/20/20 05/20/20 History Allergies Allergy/AdvReac Type Severity Reaction Status Date / Time morphine Allergy Itching Verified 05/20/20 15:14 Penicillins Allergy Itching Verified 05/20/20 15:14 sulfamethoxazole Allergy Unknown Verified 05/20/20 22:08 [From Bactrim] trimethoprim [From Bactrim] Allergy Unknown Verified 05/20/20 22:08 ciprofloxacin [From Cipro] AdvReac Unknown Nausea Verified 05/20/20 15:14 Physical Examination - Vital Signs Vital Signs: Vital Signs Temp Pulse Resp BP Pulse Ox 05/21/20 02:27 75 18 109/74 98 05/20/20 23:27 98.1 F 72 16 131/91 100 05/20/20 22:15 98.5 F 77 16 132/94 100 05/20/20 21:46 86 16 98 05/20/20 18:28 98.5 F 80 18 156/103 98 05/20/20 16:00 67 18 128/86 99 05/20/20 15:00 70 18 128/86 98 05/20/20 14:05 97.9 F 68 18 142/89 100 Intake and Output 05/20/20 05/21/20 05/21/20 22:59 06:59 14:59 Other: # Voids 2 Weight 74.843 kg On examination patient is a middle aged female, in no acute distress. Patient is alert awake oriented to time place and person. Speech and language functions are normal. Attention, concentration and fund of knowledge is adequate. On cranial nerve examination pupils are round and reactive to light, visual hung are full on confrontation, extraocular muscles are intact with no nystagmus. Face is symmetric, tongue protrudes to the midline. Palatal elevation and sensation are normal, hearing and shoulder shrug normal, facial sensation normal. On muscle strength testing there is no pronator drift and the strength is normal in arms and legs distally and proximally reflexes are 1+ to 2+ and plantars downgoing. Sensory to touch is equal. No ataxia for [id number] or [id number] testing. Tone and bulk of muscles normal. Gait deferred. On general examination there is no bruit or murmur, peripheral pulses are present. Abdomen soft nontender, chest is clear. Results - Laboratory Findings CBC and BMP: 05/20/20 14:12 05/21/20 10:45 Abnormal Lab Findings: Abnormal Labs 05/20/20 05/20/20 05/20/20 14:07 14:12 15:51 Sodium 119 L* Potassium 2.9 L Chloride 81 L Glucose 116 H POC Glucose (mg/dL) 123 H Magnesium 1.3 L AST 119 H ALT 80 H Urine Appearance Urine Blood Ur Leukocyte Esterase Urine RBC Urine WBC Urine Bacteria 05/20/20 17:05 Sodium Potassium Chloride Glucose POC Glucose (mg/dL) Magnesium AST ALT Urine Appearance Cloudy H Urine Blood Trace H Ur Leukocyte Esterase Large H Urine RBC 6 H Urine WBC >182 H Urine Bacteria Occasional H Assessment and Plan Assessment: * Near syncopal spell, possibly vasovagal, possible hypovolemic from frequent vomiting * Severe hyponatremia 119, due to above. * Hypokalemia * Status post second vaccination for Covid 05/09/2020 with subsequent flulike symptoms. * Moderate alcoholism. Plan: * Patient had a normal computed tomography scan of head, and the carotid Doppler * 2-D echo showed normal left ventricular size, left ventricular wall thickness. EF is 55-60%. * Patient's sodium has improved to 130 and potassium still low 3.0. Would differ electrolyte management to IM. * No other neurological workup indicated. Patient counseled about slowly decreasing and possibly abstain from alcoholism.
[2020-05-21 14:27] VITALS: BP 119/79; PULSE 73; TEMP 97.9
[2020-05-21] MEDS ORDERED: MAGNESIUM OXIDE 400 MG TAB PO SCH (16:00)
[2020-05-21] MEDS ORDERED: CEPHALEXIN 500 MG CAP PO SCH (16:00)
--- NOTE | 2020-05-21 20:08 | P.HPIM ---
History of Present Illness H&P Date: 05/21/20 Chief Complaint: Past out History of presenting complaint: This is a pleasant 54 old patient who follows Dr. Zev Mathis. Patient chronic stable medical conditions include GERD, hyperlipidemia, hypertension, DJD, history of colitis. Patient was doing the interview on zoom,was around 1:30 in the afternoon. Patient suddenly became dizzy and lightheaded speech became slur red and patient may have passed out for about a minute. There was no tongue biting or incontinence. With about 20 minutes patient felt back to her usual self. She had a light breakfast of some cereal and yogurt. She normally takes a larger unknown which she had not taken. Patient did have COVID 19 infection last year in April. On May 09 patient did take a second dose of 4 COVID vaccine. She did developed fever and chills for couple of days. Since then she not really feeling well. Just feeling tired rundown. Also she noticed that the loss to 3 days she was having some nausea vomiting. Unable to keep any food down. She also was drinking quite a bit of water. Patient's sodium in the ER came back to be 119 and potassium was 2.9. Patient also had some fever and chills at home. Review of systems: GEN.: Fever and chills tired EYES: None HEENT: None NECK: None RESPIRATORY: None CARDIOVASCULAR: None GASTROINTESTINAL: None GENITOURINARY: None MUSCULOSKELETAL: Some joint pains LYMPHATICS: None HEMATOLOGICAL: None PSYCHIATRY: None NEUROLOGICAL: No neuro deficits Past medical history to include: GERD, hyperlipidemia, hypertension, colitis, DJD, depression Social history: Every evening patient does 2 drinks of workup. Marijuana occasionally. . 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 Family history: Lung cancer Physical examination: VITAL SIGNS: 97.9, 68, 18, 128/86, 98% on room air GENERAL: BMI 26.4, laying in bed, slightly tired. EYES: Pupils equal. Conjunctiva normal. HEENT: External appearance of nose and ears normal, oral cavity grossly normal. NECK: JVD not raised; masses not palpable. HEART: First and second heart sounds are normal; no edema. LUNGS: Respiratory rate normal; clear to auscultation. ABDOMEN: Soft, nontender, liver spleen not palpable, no masses palpable. PSYCH: Alert and oriented x3; mood and affect tiredl. NEUROLOGICAL: Cranial nerves grossly intact; no facial asymmetry, power and sensation grossly intact. LYMPHATICS: No lymph nodes palpable in the axilla and neck INVESTIGATIONS, reviewed in the clinical context: WBC 8 hemoglobin 13.6 platelets 319 sodium 119 potassium 2.9 creatinine 0.81 glucose 116 magnesium 1.3 ALT right ear AST 119 UA positive for leukoesterase, WBC Serum alcohol less than 10. Coronavirus [PCR] not detected EKG tracing personally reviewed by me-normal sinus rhythm Chest x-ray film personally reviewed by me-no infiltrate Computed tomography scan of the brain: Nothing acute Carotid Doppler: No significant stenosis 2-D echocardiogram: EF 55-60% Assessment and plan: -Severe hyponatremia in a patient's been having nausea vomiting likely from underlying UTI. Patient oral intake had not been good. But has been drinking plain water. Patient was started on saline in the ER. Which is actually hypertonic. Patient told to cut back on free water. Increase her solid food intake -Hypokalemia from vomiting. Replace -Hypochloremia from vomiting. Replace with saline -Episode of patient passing out. Likely vasovagal. Combination of low sodium dehydration and a UTI. Patient had no focal symptoms or history. Not neurological. Highly doubt any arrhythmia. -Acute UTI with cystitis. Patient started IV ceftriaxone -Hyperlipidemia, continue with Zocor -Essential hypertension, continue with Cozaar Tenormin -Chronic DJD, -Depression. Continue with BuSpar and Effexor -GERD under with PPI -Hypomagnesemia. Replace magnesium -Suspect underlying alcoholic hepatitis. Patient was placed on saline. Free water restriction. Increase oral intake. Potassium magnesium replaced. Consultation was made to cardiology and neurology. Care was discussed with the patient. Questions answered. Past Medical History Past Medical History: GERD/Reflux, GI Bleed, Hyperlipidemia, Hypertension Additional Past Medical History / Comment(s): Lower GI bleed, colitis, DDD, chronic low back pain, hypothyroidism (resolved with 40 pound weight loss) History of Any Multi-Drug Resistant Organisms: None Reported Past Surgical History: Breast Surgery, Joint Replacement, Orthopedic Surgery, Uterine Ablation Additional Past Surgical History / Comment(s): bilateral breast reduction x2, bone spur right hip, R hip arthroplasty, panniculectomy, D&C with ut. ablation, colonoscopy, lumbar epidural injections Past Anesthesia/Blood Transfusion Reactions: No Reported Reaction Additional Past Anesthesia/Blood Transfusion Reaction / Comment(s): NO blood transfusion to date Smoking Status: Never smoker - Past Family History Mother Family Medical History: Cancer Additional Family Medical History / Comment(s): at age 63 from LUNG CANCER Father Family Medical History: Hypertension Medications and Allergies Home Medications Medication Instructions Recorded Confirmed Type Omeprazole 40 mg PO AC-BRKFST 08/01/15 05/20/20 History Simvastatin [Zocor] 20 mg PO DAILY 08/01/15 05/20/20 History Atenolol [Tenormin] 50 mg PO DAILY 05/20/20 05/20/20 History Venlafaxine HCl [Effexor XR] 75 mg PO BID 05/20/20 05/20/20 History busPIRone HCL 15 mg PO BID 05/20/20 05/20/20 History hydroCHLOROthiazide 25 mg PO DAILY 05/20/20 05/20/20 History Cephalexin [Keflex] 500 mg PO TID #9 cap 05/21/20 Rx Losartan Potassium [Cozaar] 100 mg PO HS #0 05/21/20 05/20/20 Rx Magnesium Oxide [Mag-Ox] 250 mg PO TID #9 tablet 05/21/20 Rx Allergies Allergy/AdvReac Type Severity Reaction Status Date / Time morphine Allergy Itching Verified 05/20/20 15:14 Penicillins Allergy Itching Verified 05/20/20 15:14 sulfamethoxazole Allergy Unknown Verified 05/20/20 22:08 [From Bactrim] trimethoprim [From Bactrim] Allergy Unknown Verified 05/20/20 22:08 ciprofloxacin [From Cipro] AdvReac Unknown Nausea Verified 05/20/20 15:14 Physical Exam Vitals: Vital Signs Temp Pulse Resp BP Pulse Ox 05/21/20 02:27 75 18 109/74 98 05/20/20 23:27 98.1 F 72 16 131/91 100 05/20/20 22:15 98.5 F 77 16 132/94 100 05/20/20 21:46 86 16 98 05/20/20 18:28 98.5 F 80 18 156/103 98 05/20/20 16:00 67 18 128/86 99 05/20/20 15:00 70 18 128/86 98 05/20/20 14:05 97.9 F 68 18 142/89 100 Intake and Output 05/20/20 05/21/20 05/21/20 22:59 06:59 14:59 Other: # Voids 2 Weight 74.843 kg Results CBC & Chem 7: 05/20/20 14:12 05/21/20 15:05 Labs: Abnormal Lab Results - Last 24 Hours (Table) 05/20/20 05/20/20 05/20/20 Range/Units 14:07 14:12 15:51 Sodium 119 L* (137-145) mmol/L Potassium 2.9 L (3.5-5.1) mmol/L Chloride 81 L (98-107) mmol/L Glucose 116 H (74-99) mg/dL POC Glucose (mg/dL) 123 H (75-99) mg/dL Magnesium 1.3 L (1.6-2.3) mg/dL AST 119 H (14-36) U/L ALT 80 H (4-34) U/L Urine Appearance (Clear) Urine Blood (Negative) Ur Leukocyte Esterase (Negative) Urine RBC (0-5) /hpf Urine WBC (0-5) /hpf Urine Bacteria (None) /hpf 05/20/20 Range/Units 17:05 Sodium (137-145) mmol/L Potassium (3.5-5.1) mmol/L Chloride (98-107) mmol/L Glucose (74-99) mg/dL POC Glucose (mg/dL) (75-99) mg/dL Magnesium (1.6-2.3) mg/dL AST (14-36) U/L ALT (4-34) U/L Urine Appearance Cloudy H (Clear) Urine Blood Trace H (Negative) Ur Leukocyte Esterase Large H (Negative) Urine RBC 6 H (0-5) /hpf Urine WBC >182 H (0-5) /hpf Urine Bacteria Occasional H (None) /hpf Microbiology - Last 24 Hours (Table) 05/20/20 17:05 Urine Culture - Preliminary Urine,Voided Thrombosis Risk Factor Assmnt - Choose All That Apply Any of the Below Risk Factors Present?: Yes Each Factor Represents 1 point: Age 41-60 years Other Risk Factors: No Other congenital or acquired thrombophilia - If yes, enter type in comment: No Thrombosis Risk Factor Assessment Total Risk Factor Score: 1 Thrombosis Risk Factor Assessment Level: Low Risk
--- NOTE | 2020-05-22 11:54 | P.DS ---
Providers Date of admission: 05/20/20 15:26 Expected date of discharge: 05/21/20 Attending physician: Rehan Hester Consults: 05/20/20 15:27 Consult Physician Routine Consulting Provider: Eulalia Hernandez Consult Reason/Comments: Syncope vs TIA Do you want consulting provider notified?: Yes Consult Physician Routine Consulting Provider: Dharmesh Rendon Consult Reason/Comments: Syncope Do you want consulting provider notified?: Yes Primary care physician: Zev Mathis [facility] Course: Chief Complaint: Past out History of presenting complaint: This is a pleasant 54 old patient who follows Dr. Zev Mathis. Patient chronic stable medical conditions include GERD, hyperlipidemia, hypertension, DJD, history of colitis. Patient was doing the interview on zoom,was around 1:30 in the afternoon. Patient suddenly became dizzy and lightheaded speech became slurred and patient may have passed out for about a minute. There was no tongue biting or incontinence. No seizure activity. about 20 minutes patient felt back to her usual self. She had a light breakfast of cereal and yogurt. She normally takes lunch at noon which she had not taken. Patient did have COVID 19 infection last year in April. On May 09 patient did take a second dose of COVID vaccine. She did developed fever and chills for couple of days. Since then she not really feeling well. Just feeling tired rundown. Also she noticed that the last 2- 3 days she was having some nausea vomiting. Unable to keep any food down. She also was drinking quite a bit of water. Patient's sodium in the ER came back to be 119 and potassium was 2.9. Patient also had some fever and chills at home. Denied any respiratory symptoms. Found to have severe hyponatremia with a sodium of 119. Potassium was 2.9. These was corrected and replaced. Soak was magnesium. Patient's found of UTI that seems to precipitate of the event. Treated with IV ceftriaxone. Cardio neurological workup was negative. The felt to be extremely unlikely. Patient's passing out was felt to be vasovagal. [Patient's computed tomography scan of the brain, carotid Doppler, 2-D echocardiogram-all unremarkable] Patient liver enzymes somewhat elevated possibly due to her drinking water at night. I did call the patient at home and told her to follow-up with her family doctor and get a referral for gastroenterology and to abstain from alcohol . Repeat LFTs in 10 days. Discussion and discharge planning more than 35 minutes Consultation: Dr. Murillo from cardiology Dr. Rowe from neurology Past medical history to include: GERD, hyperlipidemia, hypertension, colitis, DJD, depression Social history: Every evening patient does 2 drinks of workup. Marijuana occasionally. . Patient is into digital video recording. Family history: Lung cancer Physical examination: VITAL SIGNS: 97.9, 73, 16, 119/79, 99% room air GENERAL: BMI 26.4, laying in bed, slightly tired. EYES: Pupils equal. Conjunctiva normal. HEENT: External appearance of nose and ears normal, oral cavity grossly normal. NECK: JVD not raised; masses not palpable. HEART: First and second heart sounds are normal; no edema. LUNGS: Respiratory rate normal; clear to auscultation. ABDOMEN: Soft, nontender, liver spleen not palpable, no masses palpable. PSYCH: Alert and oriented x3; mood and affect tiredl. NEUROLOGICAL: Cranial nerves grossly intact; no facial asymmetry, power and sensation grossly intact. LYMPHATICS: No lymph nodes palpable in the axilla and neck INVESTIGATIONS, reviewed in the clinical context: Repeat potassium 3.8 Troponin I 2 negative WBC 8 hemoglobin 13.6 platelets 319 sodium 119 potassium 2.9 creatinine 0.81 glucose 116 magnesium 1.3 ALT 80 AST 119 UA positive for leukoesterase, WBC/gram-negative bacilli Serum alcohol less than 10. Coronavirus [PCR] not detected EKG tracing personally reviewed by me-normal sinus rhythm Chest x-ray film personally reviewed by me-no infiltrate Computed tomography scan of the brain: Nothing acute Carotid Doppler: No significant stenosis 2-D echocardiogram: EF 55-60% Assessment and plan: -Severe hyponatremia in a patient's been having nausea vomiting likely from underlying UTI. Patient oral intake had not been good. But has been drinking plain water. Patient was started on saline in the ER. Which is actually hypertonic. Patient told to cut back on free water. Increase her solid food intake -Hypokalemia from vomiting. Replace -Hypochloremia from vomiting. Replace with saline -Episode of patient passing out. Likely vasovagal. Combination of low sodium dehydration and a UTI. Patient had no focal symptoms or history. Not neurological. Highly doubt any arrhythmia. -Acute UTI with cystitis. IV ceftriaxone -Hyperlipidemia, continue with Zocor -Essential hypertension, continue with Cozaar Tenormin -Chronic DJD, -Depression. Continue with BuSpar and Effexor -GERD under with PPI -Hypomagnesemia. Replace magnesium -Probable alcoholic hepatitis.-Patient told to abstain from alcohol. Get a referral from PCP for gastroenterology follow-up Disposition: Home Labs: CMP, magnesium-1 week Plan - Discharge Summary Discharge Rx Participant: No New Discharge Prescriptions: New Magnesium Oxide [Mag-Ox] 250 mg PO TID #9 tablet Cephalexin [Keflex] 500 mg PO TID #9 cap Continue Simvastatin [Zocor] 20 mg PO DAILY Omeprazole 40 mg PO [facility] Venlafaxine HCl [Effexor XR] 75 mg PO BID hydroCHLOROthiazide 25 mg PO DAILY busPIRone HCL 15 mg PO BID Atenolol [Tenormin] 50 mg PO DAILY Changed Losartan Potassium [Cozaar] 100 mg PO HS #0 Discharge Medication List Omeprazole 40 mg PO AC-BRKFST 08/01/15 [History] Simvastatin [Zocor] 20 mg PO DAILY 08/01/15 [History] Atenolol [Tenormin] 50 mg PO DAILY 05/20/20 [History] Venlafaxine HCl [Effexor XR] 75 mg PO BID 05/20/20 [History] busPIRone HCL 15 mg PO BID 05/20/20 [History] hydroCHLOROthiazide 25 mg PO DAILY 05/20/20 [History] Cephalexin [Keflex] 500 mg PO TID #9 cap 05/21/20 [Rx] Losartan Potassium [Cozaar] 100 mg PO HS #0 05/21/20 [Rx] Magnesium Oxide [Mag-Ox] 250 mg PO TID #9 tablet 05/21/20 [Rx] Follow up Appointment(s)/Referral(s): Zev Mathis MD [Primary Care Provider] - 1-2 days Radha Mancera MD [STAFF PHYSICIAN] - 2 Weeks Patient Instructions/Handouts: Hyponatremia (DC), Hypokalemia (DC), Hypomagnesemia (DC), Near Syncope (ED) Discharge Disposition: HOME SELF-CARE
== END 2020-05-21 18:26 | disposition home or self-care (01) | DRG 641 ==
LOC: EC 14:04 → 1SOBS 15:26 → 5NMEDONC 20:58
PROVIDERS: ADMIT Hospitalist; ATTEND Hospitalist
DX: E87.1 Hypo-osmolality and hyponatremia (principal); N30.00 Acute cystitis without hematuria; F10.20 Alcohol dependence, uncomplicated; Z20.822 Contact with and (suspected) exposure to COVID-19; E86.0 Dehydration; R55 Syncope and collapse; K21.9 Gastro-esophageal reflux disease without esophagitis; I10 Essential (primary) hypertension; E78.5 Hyperlipidemia, unspecified; F32.9 Major depressive disorder, single episode, unspecified; E87.6 Hypokalemia; M19.90 Unspecified osteoarthritis, unspecified site; E87.8 Other disorders of electrolyte and fluid balance, not elsewhere classified; K70.10 Alcoholic hepatitis without ascites; E83.42 Hypomagnesemia; E86.1 Hypovolemia; G89.29 Other chronic pain; M54.5 Low back pain; Z79.899 Other long term (current) drug therapy; Z98.890 Other specified postprocedural states; Z86.16 Personal history of COVID-19; Z96.641 Presence of right artificial hip joint; Z88.1 Allergy status to other antibiotic agents; Z88.5 Allergy status to narcotic agent; Z88.0 Allergy status to penicillin; Z80.1 Family history of malignant neoplasm of trachea, bronchus and lung; Z82.49 Family history of ischemic heart disease and other diseases of the circulatory system
CPT/HCPCS: 36415; 70450; 71046; 80048; 80053; 80320; 81001; 83735; 84132; 84484; 85025; 85610; 85730; 87077; 87086; 87186; 87635; 93005; 93306; 93880; 96360; 99285

== ENCOUNTER → 2020-07-08 | Outpatient (CLI) | payer OTHER ==
--- NOTE | 2020-07-09 07:11 | US ---
EXAMINATION TYPE: US kidneys/renal and bladder DATE OF EXAM: 07/08/2020 COMPARISON: NONE CLINICAL HISTORY: N39.0 Urinary tract infection, site not specified. EXAM MEASUREMENTS: Right Kidney: 10.1 x 5.5 x 5.6 cm Left Kidney: 9.1 x 4.2 x 5.3 cm Right Kidney: No hydronephrosis or masses seen Left Kidney: No hydronephrosis or masses seen Bladder: anechoic Left bladder jet seen There is no evidence for hydronephrosis at this point in time. No nephrolithiasis is seen. No ayesha s are identified. The urinary bladder is anechoic. IMPRESSION: No distinct abnormality seen.
== END | disposition home or self-care (01) ==
LOC: RADUSWWP 16:12
PROVIDERS: ATTEND Family Medicine
DX: N39.0 Urinary tract infection, site not specified (principal)
CPT/HCPCS: 76770

== ENCOUNTER 2020-08-20 08:18 | Day surgery (SDC) | payer OTHER ==
[2020-08-18 15:07] VITALS: BMI 25.0
[~2020-08-20 08:18] MED LIST changes: -LACTATED RINGERS 1,000 ML IV SCH; +LIDOCAINE 1% (10MG/ML) FOR IV START INTRADERMA PRN; -LIDOCAINE 1% 20 ML VIAL (10MG/ML) FOR IV START INTRADERMA PRN; +MOXIFLOXACIN HCL 0.5% DROPS 3 ML BTL OP PRN; +ONDANSETRON 4 MG/2 ML VIAL IVP ONE; +TETRACAINE 0.5% OPHTH (PF) DROPS 4 ML BTL OP PRN; +TIMOLOL 0.5% OPHTH DROPS 5 ML BTL OP PRN
[2020-08-20] MEDS: PHENYLEPHRINE 2.5% OPHTH DRP 2ML OP PRN ×3 (08:52→09:04)
[2020-08-20] MEDS: CYCLOPENTOLATE 1% OPHTH SOLN 2 ML BTL OP PRN ×3 (08:55→09:07)
[2020-08-20 08:57] VITALS: RESP 16; TEMP 99.1
[2020-08-20] MEDS: LACTATED RINGERS 1,000 ML IV SCH ×2 (09:07→09:39)
[2020-08-20] MEDS ORDERED: MIDAZOLAM 2 MG/2 ML VIAL IVP ONE (09:14)
[2020-08-20] MEDS ORDERED: MIDAZOLAM 2 MG/2 ML VIAL ONE (09:40)
[2020-08-20] MEDS ORDERED: fentaNYL (PF) 50 MCG/ML 2 ML AMP ONE (09:40)
[2020-08-20] MEDS ORDERED: BALANCED SALT IRRIG SOLN COMB2 15 ML IRRIG.SOLN IRRIGATION ONE (09:55)
[2020-08-20] MEDS ORDERED: LIDOCAINE 1% (PF) 10MG/ML VIAL MISCELLANE ONE (09:55)
[2020-08-20] MEDS ORDERED: HYALURONATE SODIUM INTRAOCULAR 1 EACH SYRINGE (12MG/ML) INTRAOCULA ONE (09:55)
[2020-08-20] MEDS ORDERED: EPINEPHrine (PF) 0.3 ML in BALANCED SALT IRRIG SOLN COMB2 500 ML IRRIGATION ONE (09:59)
--- NOTE | 2020-08-20 10:23 | P.OP ---
Date of Procedure: 08/20/20 Preoperative Diagnosis: NS & CS & PSC Postoperative Diagnosis: same Procedure(s) Performed: PIOL, OS Implants: AO1UV 24.00 Anesthesia: MAC Surgeon: Humphrey Umanzor Pathology: none sent Condition: stable Disposition: same day Indications for Procedure: blurry vision Operative Findings: no complications
[2020-08-20 10:52] VITALS: BP 131/84; PULSE 62
[2020-08-20] MEDS ORDERED: TOBRAMYCIN 0.3% OPHTH DROPS 5 ML BTL LEFT EYE PRN (23:03)
--- NOTE | 2020-08-21 06:40 | OP ---
OPERATIVE REPORT DATE OF SURGERY: August 20, 2020. PROCEDURE PERFORMED: Phacoemulsification of cataract and intraocular lens implant of the left eye. PREOPERATIVE DIAGNOSES: Nuclear sclerosis and cortical sclerosis. Posterior subcapsular cataract. POSTOPERATIVE DIAGNOSES: Nuclear sclerosis and cortical sclerosis. Posterior subcapsular cataract. OPERATION: Phacoemulsification of cataract and Crystalens implant of the left eye. NARRATIVE: After obtaining the appropriate consent, the patient was brought to the operating room. There the patient was placed under cardiac monitoring, prepped and draped in the usual sterile manner. The patient was approached from the left temporal side. The @@ mm Kirti ring inked in gentian roxi was placed centrally on the cornea. At the 11 o'clock position, a 1.1 mm keratome was used to create a paracentesis port. Through this opening, 1% Xylocaine MPF 50/50 mix with balanced salt solution was injected into the anterior chamber. This was followed by stabilization of the anterior chamber with Amvisc viscoelastic. At the 9 o'clock position, a 2.75 mm javier keratome was used to create a self-scaling corneal flap incision in a Langerman fashion. Through this opening, a cystotome was introduced to begin a continuous tear capsulorrhexis which was completed using the Utrata forceps. Care was taken to ensure that the capsulorrhexis was at least the size of the bruno on the anterior cornea. Hydrodissection and hydrodelineation of the lens was accomplished with balanced salt solution. Phacoemulsification of the lens utilizing phaco chop was accomplished in 1.75 seconds at 4% power. Addition Xylocaine MPF was instilled into the anterior chamber. This was followed by removal of the remaining cortex under irrigation and aspiration along with careful polishing of the posterior capsule in a capsule vacuum mode. Additional Amvisc viscoelastic was then used to stabilize the capsular bag, and the [employer] Crystalens intraocular lens AO1UV 24.0 diopter was injected into the capsular bag without difficulty. The lens was rotated 270 degrees so that the haptics resided at the 6 and 12 o'clock positions, and all remaining viscoelastic was then removed from within the capsular bag and around the anterior chamber. The eye was brought to normal intraocular pressure through the paracentesis port along with slight hydration of the incision sites. Watertight integrity was confirmed using a fluorescein strip. The patient then received 2 drops of 0.5% timolol followed by 2 drops of Vigamox and 2 drops of 1% atropine. The patient was then lightly patched and shielded in the usual manner. There was no complications from the procedure. The patient tolerated the procedure well and was returned to outpatient recovery in good condition. DODIE / TERI: [id number] /
== END 2020-08-20 11:14 | disposition home or self-care (01) ==
LOC: OR 08:18
PROVIDERS: ATTEND Ophthalmology
DX: H25.12 Age-related nuclear cataract, left eye (principal); H25.012 Cortical age-related cataract, left eye; H25.042 Posterior subcapsular polar age-related cataract, left eye; H25.093 Other age-related incipient cataract, bilateral; H00.023 Hordeolum internum right eye, unspecified eyelid; H00.026 Hordeolum internum left eye, unspecified eyelid; H52.13 Myopia, bilateral; H52.4 Presbyopia; Z98.890 Other specified postprocedural states; I10 Essential (primary) hypertension; F41.9 Anxiety disorder, unspecified; F32.9 Major depressive disorder, single episode, unspecified; Z86.16 Personal history of COVID-19; Z79.1 Long term (current) use of non-steroidal anti-inflammatories (NSAID); Z79.890 Hormone replacement therapy; Z79.899 Other long term (current) drug therapy; J30.2 Other seasonal allergic rhinitis; Z88.5 Allergy status to narcotic agent; Z88.1 Allergy status to other antibiotic agents; Z88.0 Allergy status to penicillin; Z88.8 Allergy status to other drugs, medicaments and biological substances
CPT/HCPCS: 66984; V2632; V2788; J2250; J0171; J3010; J2001

== ENCOUNTER 2020-08-21 12:22 | Day surgery (SDC) | payer OTHER ==
[~2020-08-21 12:22] MED LIST changes: +CYCLOPENTOLATE 1% OPHTH SOLN 2 ML BTL OP PRN; -LIDOCAINE 1% (10MG/ML) FOR IV START INTRADERMA PRN; -ONDANSETRON 4 MG/2 ML VIAL IVP ONE; +PHENYLEPHRINE 2.5% OPHTH DRP 2ML OP PRN
[2020-08-21 12:44] VITALS: RESP 16; TEMP 98.8
[2020-08-21] MEDS ORDERED: LIDOCAINE 1% (10MG/ML) FOR IV START INTRADERMA ONE (12:50)
[2020-08-21] MEDS ORDERED: LACTATED RINGERS 1,000 ML IV ONE (12:50)
[2020-08-21] MEDS ORDERED: MIDAZOLAM 2 MG/2 ML VIAL IVP ONE (13:05)
[2020-08-21] MEDS ORDERED: MIDAZOLAM 2 MG/2 ML VIAL ONE (13:45)
[2020-08-21] MEDS ORDERED: fentaNYL (PF) 50 MCG/ML 2 ML AMP ONE (13:45)
[2020-08-21] MEDS ORDERED: BALANCED SALT IRRIG SOLN COMB2 15 ML IRRIG.SOLN INTRAOCULA ONE (14:06)
[2020-08-21] MEDS ORDERED: LIDOCAINE 1% (PF) 10MG/ML VIAL SQ ONE (14:06)
[2020-08-21] MEDS ORDERED: FLUORESCEIN STRIPS 1 MG STRIP LEFT EYE ONE (14:11)
--- NOTE | 2020-08-21 14:20 | P.OP ---
Date of Procedure: 08/21/20 Preoperative Diagnosis: IOL dislocation Postoperative Diagnosis: same Procedure(s) Performed: reposition IOL, OS Implants: none Anesthesia: MAC Surgeon: Humphrey Umanzor Pathology: none sent Condition: stable Disposition: same day Indications for Procedure: poor vision Operative Findings: none
[2020-08-21 14:53] VITALS: BP 145/88; PULSE 68
--- NOTE | 2020-08-21 18:17 | OP ---
OPERATIVE REPORT DATE OF SURGERY: August 21, 2020. PROCEDURE PERFORMED: Repositioning of dislocated intra-ocular lens, left eye. PREOPERATIVE DIAGNOSIS: Anteriorly displaced Crystalens of the left eye. POSTOPERATIVE DIAGNOSIS: Anteriorly displaced Crystalens of the left eye. SURGEON: Dr. Humphrey Umanzor. ANESTHESIA: Topical. ESTIMATED BLOOD LOSS: None. SPECIMEN TAKEN: None. NARRATIVE: After obtaining the appropriate consent, the patient was brought to the operating room. There she was placed on cardiac monitoring, prepped and draped in the usual sterile manner. She was approached from her left temporal side and at the 5 o'clock position access was gained through the previous paracentesis port at the 5 o'clock area. 1% Xylocaine MPF 50:50 mix with balanced salt solution was injected into the anterior chamber. This was followed by deepening the anterior chamber with balanced salt solution. The intraocular lens during the deepening process was manipulated to ensure that the haptics were appropriately situated as far into the equator of the lens bag as the equate of the lens bag would allow. Once it was confirmed that the lens was in the appropriate position, the wound of the paracentesis was hydrated and the eye was brought to the slightly higher than normal intra-ocular pressure to approximately 35 mmHg. A fluorescein strip was used to confirm watertight integrity. This was followed by dressing the wound with ReSure. She then received 2 drops of 0.5% timolol followed by 2 drops of moxifloxacin, was then lightly patched and shielded in the usual manner. There were no complications to the procedure. She tolerated the procedure well and was returned to outpatient recovery in good condition. MMODL / IJN: [id number] /
== END 2020-08-21 14:54 | disposition home or self-care (01) ==
LOC: OR 12:22
PROVIDERS: ATTEND Ophthalmology
DX: T85.898A Other specified complication of other internal prosthetic devices, implants and grafts, initial encounter (principal); Y83.8 Other surgical procedures as the cause of abnormal reaction of the patient, or of later complication, without mention of misadventure at the time of the procedure; Z88.0 Allergy status to penicillin; I10 Essential (primary) hypertension; F41.9 Anxiety disorder, unspecified; F32.9 Major depressive disorder, single episode, unspecified; Z86.16 Personal history of COVID-19; Z79.899 Other long term (current) drug therapy; Z83.518 Family history of other specified eye disorder; E78.5 Hyperlipidemia, unspecified; Z88.1 Allergy status to other antibiotic agents; Z88.5 Allergy status to narcotic agent; Z88.2 Allergy status to sulfonamides; K21.9 Gastro-esophageal reflux disease without esophagitis
CPT/HCPCS: 66999; J2250; J3010; J2001

== ENCOUNTER 2020-09-10 06:20 | Day surgery (SDC) | payer OTHER ==
[2020-09-08 16:06] VITALS: BMI 24.3
[~2020-09-10 06:20] MED LIST changes: +LACTATED RINGERS 1,000 ML IV SCH; +LIDOCAINE 1% (10MG/ML) FOR IV START INTRADERMA PRN
[2020-09-10 06:47] VITALS: TEMP 98.3
[2020-09-10] MEDS ORDERED: MIDAZOLAM 2 MG/2 ML VIAL ONE (07:25)
[2020-09-10] MEDS ORDERED: fentaNYL (PF) 50 MCG/ML 2 ML AMP ONE (07:25)
[2020-09-10] MEDS ORDERED: EPINEPHrine (PF) 0.3 ML in BALANCED SALT IRRIG SOLN COMB2 500 ML IRRIGATION ONE (07:34)
[2020-09-10] MEDS ORDERED: HYALURONATE SODIUM INTRAOCULAR 1 EACH SYRINGE (12MG/ML) INTRAOCULA ONE (07:38)
[2020-09-10] MEDS ORDERED: BALANCED SALT IRRIG SOLN COMB2 15 ML IRRIG.SOLN INTRAOCULA ONE (07:39)
[2020-09-10] MEDS ORDERED: LIDOCAINE 1% (PF) 10MG/ML VIAL MISCELLANE ONE (07:39)
[2020-09-10] MEDS ORDERED: ATROPINE OPHTH SOLN 1% 5ML BTL LEFT EYE ONE (07:52)
--- NOTE | 2020-09-10 07:56 | P.OP ---
Date of Procedure: 09/10/20 Preoperative Diagnosis: displaced IOL Postoperative Diagnosis: same Procedure(s) Performed: reposition and CTR placement Implants: [id number] 13 mm Anesthesia: MAC Surgeon: Humphrey Umanzor Pathology: none sent Condition: stable Disposition: same day Indications for Procedure: poor vision Operative Findings: no complications
[2020-09-10 08:00] VITALS: RESP 16
[2020-09-10 08:12] VITALS: BP 115/81; PULSE 60
--- NOTE | 2020-09-11 09:24 | OP ---
OPERATIVE REPORT DATE OF PROCEDURE: September 10, 2020. PROCEDURE PERFORMED: Reposition of intra-ocular lens and capsular tension ring placement of the left eye. PREOPERATIVE DIAGNOSIS: Displaced intra-ocular lens. POSTOPERATIVE DIAGNOSIS: Displaced intraocular lens. SURGEON: Dr. Humphrey Umanzor. ANESTHESIA: Topical. ESTIMATED BLOOD LOSS: None. SPECIMEN: None. NARRATIVE: This patient is a crystal lens implant patient who is demonstrating some continued problems with anterior chamber vaulting of the intraocular lens leaving the patient more myopic than originally intended. Therefore, the intent in this particular procedure is to reposition the lens and use a capsular tension ring to enlarge the diameter of the capsule so as to allow the lens proper placement. After obtaining the appropriate consent, the patient was brought to the operating room. There she was placed under cardiac monitoring, prepped and draped in the usual sterile manner. She was approached from her left temporal side and at the 3 o'clock position, a 2.5 mm keratome was used to create a self-sealing corneal flap incision. Through this opening, lidocaine MPF 50:50 mix with balanced salt solution was injected into the anterior chamber. This was followed by placement of Provisc. Using a Sinskey hook, the intraocular lens was manipulated and felt to be free of any fibrovascular impediments. Therefore, the Crystalens implant was then dislocated into the anterior chamber above the iris and a 13 mm capsular tension ring, model [id number] was placed into the capsular bag at the equator without any difficulties. Following the placement of capsular tension ring, then the intraocular lens was then placed into the capsular bag utilizing the Sinskey hook. Manipulation of the intra-ocular lens once situated within the equator of the bag was completed using the tip of the irrigation aspiration instrument while removing all remaining viscoelastic that was in the intraocular lens around the intraocular lens as well as the anterior chamber. The eye was brought to normal intraocular pressure through the temporal incision and the incision was wiped dry with a Weck-Shawna sponge. ReSure was then used to close the eye and ensure proper pressurization remained so as to ensure posterior displacement of the optic of the Crystalens implant. She then received 2 drops of moxifloxacin followed by 2 drops of half percent timolol. She was then lightly patched and shielded in the usual manner. There were no complications from the procedure. She tolerated the procedure well and was returned to outpatient recovery in good condition. MMODL / IJN: [id number] /
== END 2020-09-10 08:32 | disposition home or self-care (01) ==
LOC: OR 06:20
PROVIDERS: ATTEND Ophthalmology
DX: H27.122 Anterior dislocation of lens, left eye (principal); H00.023 Hordeolum internum right eye, unspecified eyelid; H00.026 Hordeolum internum left eye, unspecified eyelid; H25.091 Other age-related incipient cataract, right eye; Z48.810 Encounter for surgical aftercare following surgery on the sense organs; Z98.890 Other specified postprocedural states; K21.9 Gastro-esophageal reflux disease without esophagitis; Z79.890 Hormone replacement therapy; F41.9 Anxiety disorder, unspecified; K52.9 Noninfective gastroenteritis and colitis, unspecified; E78.5 Hyperlipidemia, unspecified; F32.9 Major depressive disorder, single episode, unspecified; Z86.16 Personal history of COVID-19; I10 Essential (primary) hypertension; J30.2 Other seasonal allergic rhinitis; Z79.899 Other long term (current) drug therapy; Z88.1 Allergy status to other antibiotic agents; Z88.0 Allergy status to penicillin; Z88.8 Allergy status to other drugs, medicaments and biological substances; Z88.5 Allergy status to narcotic agent; Z88.2 Allergy status to sulfonamides
CPT/HCPCS: 66825; J2250; J0171; J3010; J2001

== ENCOUNTER 2020-11-13 08:49 | Emergency (ER) | payer OTHER ==
[2020-11-13 09:07] VITALS: RESP 18; TEMP 98.3
[2020-11-13] MEDS ORDERED: ONDANSETRON 4 MG/2 ML VIAL IVP STA (09:21)
[2020-11-13] MEDS ORDERED: SODIUM CHLORIDE 0.9% 500 ML 500 ML IV STA (09:21)
[2020-11-13] MEDS ORDERED: SODIUM CHLORIDE 0.9% 1,000 ML IV STA (09:21)
[2020-11-13] MEDS ORDERED: HYDROmorphone 0.5 MG/0.5 ML SYRINGE IVP STA (09:21)
--- NOTE | 2020-11-13 09:25 | ED ---
Abdominal Pain HPI - General Chief Complaint: Abdominal Pain Stated Complaint: RLQ pain Time Seen by Provider: 11/13/20 09:09 Source: patient, family, RN notes reviewed Mode of arrival: ambulatory Limitations: no limitations - History of Present Illness Initial Comments: This a 54-year-old female presents emergency Department chief complaint of right lower quadrant abdominal pain. Patient states pain started last night has progressively worsened. Patient states it's getting unbearable 7/10 pain. Patient states she's had some nausea no vomiting no diarrheano dysuria no hematuria she's had a prior, tummy tuck other abdominal surgeries. Patient de nies any fever or chills night sweats chest pain shortness of breath states pain is worse with movement. - Related Data Home Medications Medication Instructions Recorded Confirmed Omeprazole 40 mg PO AC-BRKFST 08/01/15 11/13/20 Simvastatin [Zocor] 20 mg PO DAILY 08/01/15 11/13/20 Atenolol [Tenormin] 50 mg PO QAM 05/20/20 11/13/20 Venlafaxine HCl [Effexor XR] 75 mg PO BID 05/20/20 11/13/20 busPIRone HCL 15 mg PO BID 05/20/20 11/13/20 hydroCHLOROthiazide 25 mg PO DAILY 05/20/20 11/13/20 Losartan Potassium [Cozaar] 100 mg PO QAM 08/18/20 11/13/20 Allergies Allergy/AdvReac Type Severity Reaction Status Date / Time morphine Allergy Itching Verified 11/13/20 09:53 Penicillins Allergy Itching Verified 11/13/20 09:53 sulfamethoxazole Allergy Unknown Verified 11/13/20 09:53 [From Bactrim] trimethoprim [From Bactrim] Allergy Unknown Verified 11/13/20 09:53 ciprofloxacin [From Cipro] AdvReac Unknown Nausea Verified 11/13/20 09:53 Review of Systems ROS Statement: Those systems with pertinent positive or pertinent negative responses have been documented in the HPI. ROS Other: All systems not noted in ROS Statement are negative. Past Medical History Past Medical History: GERD/Reflux, Hyperlipidemia, Hypertension, Osteoarthritis (OA) Additional Past Medical History / Comment(s): hx colitis, DDD, chronic low back pain, hypothyroidism (resolved with 40 pound weight loss) History of Any Multi-Drug Resistant Organisms: None Reported Past Surgical History: Breast Surgery, Joint Replacement, Orthopedic Surgery, Uterine Ablation Additional Past Surgical History / Comment(s): bilateral breast reduction x2, bone spur right hip, R hip arthroplasty, panniculectomy, D&C , colonoscopy, tamera mbar epidural injections, TOTAL RIGHT HIP (2019), CATARACT LEFT EYE Past Anesthesia/Blood Transfusion Reactions: No Reported Reaction Additional Past Anesthesia/Blood Transfusion Reaction / Comment(s): . Past Psychological History: Depression Smoking Status: Never smoker Past Alcohol Use History: Daily Past Drug Use History: Marijuana - Past Family History Mother Family Medical History: Cancer Additional Family Medical History / Comment(s): at age 63 from LUNG CANCER Father Family Medical History: Hypertension General Exam Limitations: no limitations General appearance: alert, in no apparent distress Head exam: Present: atraumatic, normocephalic, normal inspection Neck exam: Present: normal inspection. Absent: tenderness, meningismus, lymphadenopathy Respiratory exam: Present: normal lung sounds bilaterally. Absent: respiratory distress, wheezes, rales, rhonchi, stridor Cardiovascular Exam: Present: regular rate, normal rhythm, normal heart sounds. Absent: systolic murmur, diastolic murmur, rubs, gallop, clicks GI/Abdominal exam: Present: soft, tenderness (Right lower quadrant), normal bowel sounds. Absent: distended, guarding, rebound, rigid Back exam: Absent: CVA tenderness (R), CVA tenderness (L) Neurological exam: Present: alert Skin exam: Present: warm, dry, intact, normal color. Absent: rash Course Vital Signs 11/13/20 11/13/20 09:03 09:55 Temperature 98.3 F Pulse Rate 78 80 Respiratory 18 18 Rate Blood Pressure 155/100 152/95 O2 Sat by Pulse 100 99 Oximetry Medical Decision Making - Medical Decision Making Laboratory unremarkable CT shows evidence of diverticulosis without diverticulitis there is no evidence of acute appendicitis. There is evidence of a hiatal hernia. No correlation for right lower quadrant pain other than moderate stool patient discharged in stable condition return parameters were discussed. - Lab Data Result diagrams: 11/13/20 09:43 11/13/20 09:43 Lab Results 11/13/20 11/13/20 11/13/20 Range/Units 09:30 09:43 09:43 WBC 6.2 (3.8-10.6) k/uL RBC 4.48 (3.80-5.40) m/uL Hgb 15.4 (11.4-16.0) gm/dL Hct 42.7 (34.0-46.0) % MCV 95.2 (80.0-100.0) fL MCH 34.2 (25.0-35.0) pg MCHC 36.0 (31.0-37.0) g/dL RDW 12.5 (11.5-15.5) % Plt Count 272 (150-450) k/uL MPV 6.9 Neutrophils % 61 % Lymphocytes % 30 % Monocytes % 5 % Eosinophils % 1 % Basophils % 1 % Neutrophils # 3.8 (1.3-7.7) k/uL Lymphocytes # 1.8 (1.0-4.8) k/uL Monocytes # 0.3 (0-1.0) k/uL Eosinophils # 0.0 (0-0.7) k/uL Basophils # 0.0 (0-0.2) k/uL Sodium 134 L (137-145) mmol/L Potassium 4.3 (3.5-5.1) mmol/L Chloride 97 L (98-107) mmol/L Carbon Dioxide 27 (22-30) mmol/L Anion Gap 10 mmol/L BUN 15 (7-17) mg/dL Creatinine 0.51 L (0.52-1.04) mg/dL Est GFR (CKD-EPI)AfAm >90 (>60 ml/min/1.73 sqM) Est GFR (CKD-EPI)NonAf >90 (>60 ml/min/1.73 sqM) Glucose 113 H (74-99) mg/dL Plasma Lactic Acid Cesar 1.1 (0.7-2.0) mmol/L Calcium 10.5 H (8.4-10.2) mg/dL Total Bilirubin 1.0 (0.2-1.3) mg/dL AST 91 H (14-36) U/L ALT 58 H (4-34) U/L Alkaline Phosphatase 90 (38-126) U/L Total Protein 8.4 H (6.3-8.2) g/dL Albumin 4.9 (3.5-5.0) g/dL Amylase 52 (30-110) U/L Lipase 88 (23-300) U/L Urine Color Urine Appearance (Clear) Urine pH (5.0-8.0) Ur Specific [place] (1.001-1.035) Urine Protein (Negative) Urine Glucose (UA) (Negative) Urine Ketones (Negative) Urine Blood (Negative) Urine Nitrite (Negative) Urine Bilirubin (Negative) Urine Urobilinogen (<2.0) mg/dL Ur Leukocyte Esterase (Negative) Urine RBC (0-5) /hpf Urine WBC (0-5) /hpf Ur Squamous Epith Cells (0-4) /hpf Urine Mucus (None) /hpf 11/13/20 Range/Units 09:54 WBC (3.8-10.6) k/uL RBC (3.80-5.40) m/uL Hgb (11.4-16.0) gm/dL Hct (34.0-46.0) % MCV (80.0-100.0) fL MCH (25.0-35.0) pg MCHC (31.0-37.0) g/dL RDW (11.5-15.5) % Plt Count (150-450) k/uL MPV Neutrophils % % Lymphocytes % % Monocytes % % Eosinophils % % Basophils % % Neutrophils # (1.3-7.7) k/uL Lymphocytes # (1.0-4.8) k/uL Monocytes # (0-1.0) k/uL Eosinophils # (0-0.7) k/uL Basophils # (0-0.2) k/uL Sodium (137-145) mmol/L Potassium (3.5-5.1) mmol/L Chloride (98-107) mmol/L Carbon Dioxide (22-30) mmol/L Anion Gap mmol/L BUN (7-17) mg/dL Creatinine (0.52-1.04) mg/dL Est GFR (CKD-EPI)AfAm (>60 ml/min/1.73 sqM) Est GFR (CKD-EPI)NonAf (>60 ml/min/1.73 sqM) Glucose (74-99) mg/dL Plasma Lactic Acid Cesar (0.7-2.0) mmol/L Calcium (8.4-10.2) mg/dL Total Bilirubin (0.2-1.3) mg/dL AST (14-36) U/L ALT (4-34) U/L Alkaline Phosphatase (38-126) U/L Total Protein (6.3-8.2) g/dL Albumin (3.5-5.0) g/dL Amylase (30-110) U/L Lipase (23-300) U/L Urine Color Yellow Urine Appearance Cloudy H (Clear) Urine pH 7.0 (5.0-8.0) Ur Specific [place] 1.033 (1.001-1.035) Urine Protein Negative (Negative) Urine Glucose (UA) Negative (Negative) Urine Ketones Negative (Negative) Urine Blood Negative (Negative) Urine Nitrite Negative (Negative) Urine Bilirubin Negative (Negative) Urine Urobilinogen <2.0 (<2.0) mg/dL Ur Leukocyte Esterase Trace H (Negative) Urine RBC 1 (0-5) /hpf Urine WBC 4 (0-5) /hpf Ur Squamous Epith Cells 18 H (0-4) /hpf Urine Mucus Rare H (None) /hpf Disposition Clinical Impression: Abdominal pain Disposition: HOME SELF-CARE Condition: Stable Instructions (If sedation given, give patient instructions): Abdominal Pain (ED) Additional Instructions: Please return to the Emergency Department if symptoms worsen or any other concerns. Is patient prescribed a controlled substance at d/c from ED?: No Referrals: Zev Mathis MD [Primary Care Provider] - 1-2 days Time of Disposition: 11:31
[2020-11-13 09:50] LABS: Basophils % (A) 1 %; Eosinophils % (A) 1 %; HCT 42.7 % (34.0-46.0); HGB 15.4 gm/dL (11.4-16.0); Lymphocytes # (A) 1.8 k/uL (1.0-4.8); Lymphocytes % (A) 30 %; MCH 34.2 pg (25.0-35.0); MCV 95.2 fL (80.0-100.0); Mean Platelet Volume 6.9; Monocytes # (A) 0.3 k/uL (0-1.0); Monocytes % (A) 5 %; Neutrophils # (A) 3.8 k/uL (1.3-7.7); Neutrophils % (A) 61 %; Platelet Count 272 k/uL (150-450); RBC 4.48 m/uL (3.80-5.40); RDW 12.5 % (11.5-15.5); WBC 6.2 k/uL (3.8-10.6)
[2020-11-13 10:11] LABS: ALT 58 U/L (4-34); African American GFR (CKD) >90 (>60 ml/min/1.73 sqM); Albumin 4.9 g/dL (3.5-5.0); Amylase 52 U/L (30-110); Anion Gap 10 mmol/L; Blood Urea Nitrogen 15 mg/dL (7-17); Calcium 10.5 mg/dL (8.4-10.2); Carbon Dioxide 27 mmol/L (22-30); Chloride 97 mmol/L (98-107); Glucose 113 mg/dL (74-99); Lipase 88 U/L (23-300); Non-African American GFR(CKD) >90 (>60 ml/min/1.73 sqM); Sodium 134 mmol/L (137-145); Total Protein 8.4 g/dL (6.3-8.2)
[2020-11-13 10:12] LABS: Appearance,Urine Cloudy (Clear); Bilirubin,Urine Negative (Negative); Blood,Urine Negative (Negative); Color,Urine Yellow; Glucose,Urine (UA) Negative (Negative); Ketones,Urine Negative (Negative); Leukocyte Esterase,Urine Trace (Negative); Mucus,Urine Rare /hpf; Nitrite,Urine Negative (Negative); Protein,Urine Negative (Negative); RBC,Urine 1 /hpf (0-5); Specific Gravity,Urine 1.033 (1.001-1.035); Squamous Epithelial Cell,Urine 18 /hpf (0-4); Urobilinogen,Urine <2.0 mg/dL (<2.0); WBC,Urine 4 /hpf (0-5)
[2020-11-13 10:19] LABS: AST 91 U/L (14-36); Alkaline Phosphatase 90 U/L (38-126); Potassium 4.3 mmol/L (3.5-5.1)
--- NOTE | 2020-11-13 11:16 | CT ---
EXAMINATION TYPE: CT abdomen pelvis w con DATE OF EXAM: 11/13/2020 COMPARISON: NONE HISTORY: 54-year-old female RLQ pain TECHNIQUE: Contiguous axial scanning of the abdomen and pelvis following administration of 100 ml Iso joselin 300 IV contrast. Delayed images through the kidneys and coronal/sagittal reconstructions perform ed. CT DLP: 988 mGycm Automated exposure control for dose reduction was used. FINDINGS: Heart normal size without pericardial effusion. RCA coronary calcifications are present. Lung bases a re clear without pleural effusion. Moderate-sized hiatal hernia. Liver borderline enlarged at 17.0 cm. There is low attenuation suggesting fatty infiltration. Portal venous system is patent. No biliary ductal dilatation. Gallbladder, adrenal glands, kidneys, spleen with anterior inferior splenule, and pancreas within nor mal limits. No dilated small bowel, free fluid, or free air. No mesenteric or retroperitoneal lymphadenopathy. Normal appendix. Scattered mild to moderate stool. Mild sigmoid diverticulosis. No pericolonic inflam matory change. Bladder urine distended. Uterus is anteverted. Small bilateral ovaries. No abnormal fluid collection in the pelvis or pelvic lymphadenopathy. Bones: Right hip total arthroplasty. Degenerated dextroconvex scoliosis centered along the lower lumb ar spine. Grade 1 retrolisthesis L3-L4. Disc bulging mid and lower lumbar spine along with hypertroph ic facet arthropathy. IMPRESSION: 1 MODERATE-SIZED HILAR HERNIA. 2. BORDERLINE HEPATOMEGALY (17.0 CM) WITH MILD HEPATIC STEATOSIS. 3. MILD MID SIGMOID DIVERTICULOSIS WITHOUT ACUTE DIVERTICULITIS. 4. NORMAL APPENDIX.
[2020-11-13 11:43] VITALS: PULSE 74
[2020-11-13 11:44] VITALS: BP 132/93
== END 2020-11-13 11:40 | disposition home or self-care (01) ==
LOC: EC 08:49
DX: R10.31 Right lower quadrant pain (principal); I10 Essential (primary) hypertension; E78.5 Hyperlipidemia, unspecified; K21.9 Gastro-esophageal reflux disease without esophagitis; M19.90 Unspecified osteoarthritis, unspecified site; E03.9 Hypothyroidism, unspecified; F32.9 Major depressive disorder, single episode, unspecified; F12.90 Cannabis use, unspecified, uncomplicated; Z88.5 Allergy status to narcotic agent; Z88.0 Allergy status to penicillin; Z88.2 Allergy status to sulfonamides; Z88.1 Allergy status to other antibiotic agents; Z96.641 Presence of right artificial hip joint
CPT/HCPCS: 99284; 96374; 96375; 96361; 36415; 80053; 82150; 83605; 83690; 85025; 81001; 74177; J2405; J1170; Q9967

== ENCOUNTER → 2020-12-30 | Outpatient (CLI) | payer OTHER ==
--- NOTE | 2021-01-01 10:50 | MM ---
Reason for exam: screening (asymptomatic). Last mammogram was performed 1 year and 1 month ago. History: Patient is postmenopausal and is nulliparous. Benign US biopsy breast VAD RT of the right breast, October 16, 2018. Benign right mammotome panel of the right breast, May 26, 2007. Reductions of both breasts, June 01, 2006. Took hormonal contraceptives for 9 years beginning at age 43. Physical Findings: A clinical breast exam by your physician is recommended on an annual basis and results should be correlated with mammographic findings. MG Screening Mammo w CAD Bilateral CC and MLO view(s) were taken. Prior study comparison: December 10, 2019, bilateral MG screening mammo w CAD. October 16, 2018, right breast MG diagnostic mammo RT wo CAD. September 27, 2018, right breast MG work up mamm w CAD RT. September 13, 2017, bilateral MG 3d screening mammo w/cad. August 13, 2016, bilateral MG screening mammo w CAD. There are scattered fibroglandular densities. Previous mammotome biopsy in the right breast x 2. Asymmetric density posterior superior left MLO is more defined. ASSESSMENT: Incomplete: need additional imaging evaluation, BI-RAD 0 RECOMMENDATION: Special view mammogram of the left breast. (3D) If lesion persists on supplemental views, image directed ultrasound is recommended. [facility] will attempt to contact patient to return for supplemental views and ultrasound if indicated.
== END | disposition home or self-care (01) ==
LOC: RADMAMWWP 14:48
PROVIDERS: ATTEND Obstetrics & Gynecology
DX: Z12.31 Encounter for screening mammogram for malignant neoplasm of breast (principal); Z78.0 Asymptomatic menopausal state
CPT/HCPCS: 77067

== ENCOUNTER → 2021-01-09 | Outpatient (CLI) | payer OTHER ==
--- NOTE | 2021-01-12 08:55 | MM ---
Reason for exam: additional evaluation requested from abnormal screening. Last mammogram was performed less than 1 month ago. History: Patient is postmenopausal and is nulliparous. Benign US biopsy breast VAD RT of the right breast, October 16, 2018. Benign right mammotome panel of the right breast, May 26, 2007. Reductions of both breasts, June 01, 2006. Took hormonal contraceptives for 9 years beginning at age 43. Physical Findings: Nurse did not find any significant physical abnormalities on exam. MG Work Up Mamm w CAD LT LM and spot compression MLO view(s) were taken of the left breast. Prior study comparison: December 30, 2020, bilateral MG screening mammo w CAD. December 10, 2019, bilateral MG screening mammo w CAD. There are scattered fibroglandular densities. Post operative change left breast, similar to priors. These results were verbally communicated with the patient and result sheet given to the patient on 01/09/21. ASSESSMENT: Benign, BI-RAD 2 RECOMMENDATION: Return to routine screening mammogram schedule for both breasts.
== END | disposition home or self-care (01) ==
LOC: RADMAMWWP 15:01
PROVIDERS: ATTEND Obstetrics & Gynecology
DX: N64.89 Other specified disorders of breast (principal); Z78.0 Asymptomatic menopausal state
CPT/HCPCS: 77065

== ENCOUNTER → 2022-01-28 | Outpatient (CLI) | payer OTHER ==
--- NOTE | 2022-01-29 18:14 | MM ---
Reason for Exam: Screening (asymptomatic). Last mammogram was performed 1 year(s) and 1 month(s) ago. Patient History: Menarche at age 15. Patient has no children. Postmenopausal. Hormonal Contraceptives, starting at age 43 for 9 years. 06/01/2006, Bilateral Reduction. 10/16/2018, Benign Core Biopsy on the right side. 05/26/2007, Benign Core Biopsy on the right side. Risk Values: Ly 5 year model risk: 1.8%. NCI Lifetime model risk: 12.2%. Prior Study Comparison: 05/28/2011 Bilateral Diagnostic Mammogram, [facility]. 06/09/2012 Bilateral Screening Mammogram, [facility]. 06/22/2013 Bilateral Screening Mammogram, [facility]. 07/26/2014 Bilateral Screening Mammogram, [facility]. 08/08/2015 Bilateral Screening Mammogram, [facility]. 08/13/2016 Bilateral Screening Mammogram, [facility]. 09/13/2017 Bilateral Screening Mammogram, [facility]. 09/15/2018 Bilateral Screening Mammogram, [facility]. 09/27/2018 Right Diagnostic Mammogram, [facility]. 09/27/2018 Right Diagnostic Ultrasound, [facility]. 10/16/2018 Right Diagnostic Mammogram, [facility]. 12/10/2019 Bilateral Screening Mammogram, [facility]. 12/30/2020 Bilateral Screening Mammogram, [facility]. 01/09/2021 Left Diagnostic Mammogram, [facility]. Tissue Density: The breast tissue is almost entirely fat. Findings: Analyzed By CAD. Benign versus calcification on the left. Microclip right breast from prior biopsy. Chronic nodularity lateral left breast. No significant change from prior exams. Overall Assessment: Benign, BI-RAD 2 Management: Screening Mammogram of both breasts in 1 year. 1. Patient should continue monthly self breast exams. 2. A clinical breast exam by your physician is recommended on an annual basis. 3. This exam should not preclude additional follow-up of suspicious palpable abnormalities. Electronically signed and approved by: Rosey Suárez M.D. Radiologist
== END | disposition home or self-care (01) ==
LOC: RADMAMWWP 12:39
PROVIDERS: ATTEND Obstetrics & Gynecology
DX: Z12.31 Encounter for screening mammogram for malignant neoplasm of breast (principal); Z78.0 Asymptomatic menopausal state
CPT/HCPCS: 77063; 77067

== ENCOUNTER → 2022-12-23 | Outpatient (CLI) | payer BC, OTHER ==
[2022-12-23 13:15] VITALS: BP 175/104; PULSE 73; RESP 16; TEMP 98.4
--- NOTE | 2022-12-23 13:52 | P.PAINPG ---
PQRS Measure Charge Sheet Comment: HISTORY OF PRESENT ILLNESS: A 57 yr old female as a referral from Dr Ventura presents today w severe and chronic LBP x yrs secondary to DDD, spondylosis and facet arthropathy without myelopathy for evaluation. Pt states pain level is provoked at 8/10 in intensity, constant, localized in the lower lumbar spine, achy in character without shooting pain. Pain is provoked by over activity. Pain is alleviated by PT x 3 wks in June 2022, massage therapy every 2 mo x 2 yrs which she is currently in, chiropractic treatments semi monthly for 1 yr which she is currently in, physician guided home exercise/ stretching regimen 3 times weekly since June 2022, heat, ice, medications (Ibu), topical, repositioning and rest. Oswestry axial pain score at 12. PMH: OA, GERD, Hyperlipidemia, HTN, Hypothyroidism PSH: Breast Reduction x2, R Hip Arthroplasty (2019), Orthopedic Surgery, D&C, Uterine Ablation, L Eye Cataract Removal, Panniculectomy, Colonoscopy SH: Never smoker, daily ETOH use, +Cannabis use FH: Fa- HTN. Mo- Lung CA/ age 64. All: See list Meds: See list REVIEW OF ORGAN SYSTEMS: CONSTITUTIONAL: No fevers or chills. No recent weight loss. NEUROLOGICAL: + numbness and tingling along the distal extremities. No seizure disorders or headaches. MUSCULOSKELETAL: + pain PSYCHIATRIC: Denies current depression or suicidal thoughts. Physical Examinations : Constitutional : Cooperative , not in acute distress . Neurologic : Cranial nerve II to XII intact. No focal neurological deficits. Psychiatric : alert & oriented x 3. Matching mood & appropriate affect. Judgment & insight intact. Musculoskeletal : Cervical Spine Motor strength in the deltoid and biceps: Normal right side. Normal Left side Motor strength biceps and the wrist extensors: Normal right side . Normal left side Motor strength in the triceps muscle: Normal right side. Normal left side Deep tendon reflexes: Normal at the biceps. Normal at Brachioradialis. Normal at triceps Vertebral body tenderness to deep palpation over Cervical facet loading test: positive bilaterally Spurling test: positive bilaterally Neck distraction test: positive bilaterally Rishi sign: positive bilaterally Lumbar spine Motor strength lower extremities ,thigh and legs 5/5 Right side , 5/5 Left side Deep tendon reflexes : Normal Knee Jerk. Normal Ankle Jerk Vertebral body tenderness over L4 Ortega Test positive over L4-L5 Lumbar facet Loading Test: positive Right / positive Left Range of motion of the lumbar spine Flexion 30 degrees, extension 10 degrees Straight Leg Raise test: Left/ Right positive at degree Nathalie test: positive right / positive left. Severe tenderness over the Sacroiliac joint on the Right / Left sides Gaenslen test: positive bilaterally Seated flexion test: positive bilaterally. Sacral spine : Severe tenderness over the Sacroiliac joint: right side / left side Range of motion: Flexion of the lumbar spine <60 degrees Range of motion: Extension of the lumbar spine <20 degrees Gaenslen's Test positive Yadiel's Test positive Nathalie test: positive right side / left side Thigh Thrust Test Sacral Thrust Test Imaging: MRI noncontrast of the lumbar spine from 02/02/22 reviewed Assessment/ Plan : Lumbar DDD Recommendation of OZ L4-L5 #1. May need a series of injections for optimal pain relief. Risks, benefits of procedure discussed and patient verbalized understanding. Admits to anti- coagulant use or medical history of diabetes. Protocol for discontinuation/ continuation of medications nirali procedure discussed. Minimal anesthesia provided, if clinically indicated, consisting of Versed and Fentanyl. Valium 5mg #2, Use side effects adverse reactions and safe storage discussed. Pt acknowledged understanding. All questions answered. I have spent greater than 30 minutes on patient care today. Dr Ornelas was available by phone for the evaluation of this patient. The time was used to review the medical records including relevant urine studies and Prescription history (MAPs), review of the available imaging, evaluation and examination of the patient, coordination of care with the medical staff and if applicable referring physicians, as well as creation of the medical record - Pain Location Bilateral Lower Back Non-Pharmacological Interventions: Exercise, Heat, Home Exercise, Ice, Inactivity, Massage, Physical Therapy, Position/Reposition, Stretching Pharmacological Interventions: Epidural, PRN Medication, Topical Medication PQRS Narrative: Smoking Status Never smoker Home Medications: Ambulatory Orders Omeprazole 40 mg PO AC-BRKFST 08/01/15 Simvastatin [Zocor] 20 mg PO DAILY 08/01/15 Venlafaxine HCl [Effexor XR] 75 mg PO BID 05/20/20 atenoloL [Tenormin] 50 mg PO QAM 05/20/20 busPIRone HCL 15 mg PO BID 05/20/20 hydroCHLOROthiazide 25 mg PO DAILY 05/20/20 Losartan Potassium [Cozaar] 100 mg PO QAM 08/18/20 diazePAM [Valium] 5 mg PO DAILY PRN 1 Days #2 tab 12/23/22 Controlled Substance Measures - Controlled Substance Measures Is patient prescribed a controlled substance at discharge?: Yes When asked, does pt state using other controlled substances?: No If prescribed controlled substance>3 days was MAPS reviewed?: Prescribed <3 Days
== END ==
LOC: PNWHC3 12:28
PROVIDERS: ATTEND Specialist
DX: M48.061 Spinal stenosis, lumbar region without neurogenic claudication (principal); M41.86 Other forms of scoliosis, lumbar region; M51.36 Other intervertebral disc degeneration, lumbar region; M19.90 Unspecified osteoarthritis, unspecified site; K21.9 Gastro-esophageal reflux disease without esophagitis; E78.5 Hyperlipidemia, unspecified; I10 Essential (primary) hypertension; E03.9 Hypothyroidism, unspecified; Z88.5 Allergy status to narcotic agent; Z88.0 Allergy status to penicillin; Z88.2 Allergy status to sulfonamides; Z88.1 Allergy status to other antibiotic agents; Z79.899 Other long term (current) drug therapy
CPT/HCPCS: 99211

== ENCOUNTER → 2023-01-31 | Outpatient (CLI) | payer BC ==
--- NOTE | 2023-02-01 20:34 | MM ---
Reason for Exam: Screening (asymptomatic). Last screening mammogram was performed 12 month(s) ago. Patient History: Menarche at age 15. Patient has no children. Postmenopausal. Hormonal Contraceptives, starting at age 43 for 9 years. 06/01/2006, Bilateral Reduction. 10/16/2018, Benign Core Biopsy on the right side. 05/26/2007, Benign Core Biopsy on the right side. Risk Values: Ly 5 year model risk: 1.9%. NCI Lifetime model risk: 12.0%. Prior Study Comparison: 12/30/2020 Bilateral Screening Mammogram, [facility]. 01/09/2021 Left Diagnostic Mammogram, [facility]. 01/28/2022 Bilateral MG 3D screening mammo w/cad, [facility]. Tissue Density: There are scattered fibroglandular densities. Findings: Analyzed By CAD. 2 microclips redemonstrated within the right breast. There is no suspicious group of microcalcifications or new suspicious mass in either breast. Overall Assessment: Benign, BI-RAD 2 Management: Screening Mammogram of both breasts in 1 year. . Patient should continue monthly self-breast exams. A clinical breast exam by your physician is recommended on an annual basis. This exam should not preclude additional follow-up of suspicious palpable abnormalities. Note on Ly scores and lifetime risk: 1. A Ly score greater than 3% is considered moderate risk. If this is the case, consider specialist referral to assess eligibility for a risk reducing agent. 2. If overall lifetime risk for the development of breast cancer is 20% or higher, the patient may qualify for future screening with alternating mammogram and breast MRI. Electronically signed and approved by: Rosey Suárez M.D. Radiologist
== END | disposition home or self-care (01) ==
LOC: RADMAMWWP 12:38
PROVIDERS: ATTEND Family Medicine
DX: Z12.31 Encounter for screening mammogram for malignant neoplasm of breast (principal); Z78.0 Asymptomatic menopausal state
CPT/HCPCS: 77063; 77067

== ENCOUNTER 2023-05-21 01:26 | Emergency (ER) | payer BC ==
[2023-05-21 01:40] VITALS: RESP 18; TEMP 97.7
[2023-05-21 02:13] LABS: Amorphous Sediment,Urine Rare /hpf; Hyaline Casts,Urine 27 /lpf (0-2); Mucus,Urine Many /hpf; RBC,Urine 116 /hpf (0-5); Squamous Epithelial Cell,Urine 219 /hpf (0-4); WBC,Urine >182 /hpf (0-5)
[2023-05-21 02:14] LABS: Appearance,Urine Slightly Cloudy (Clear); Color,Urine Orange
[2023-05-21 02:32] LABS: Basophils # (A) 0.1 k/uL (0-0.2); Basophils % (A) 1 %; Eosinophils # (A) 0.2 k/uL (0-0.7); Eosinophils % (A) 2 %; HCT 45.7 % (34.0-46.0); HGB 15.5 gm/dL (11.4-16.0); Lymphocytes # (A) 1.8 k/uL (1.0-4.8); Lymphocytes % (A) 22 %; Mean Platelet Volume 6.6; Monocytes # (A) 0.5 k/uL (0-1.0); Monocytes % (A) 6 %; Neutrophils # (A) 5.5 k/uL (1.3-7.7); Neutrophils % (A) 68 %; Platelet Count 245 k/uL (150-450); RBC 4.86 m/uL (3.80-5.40); WBC 8.1 k/uL (3.8-10.6)
[2023-05-21] MEDS: SODIUM CHLORIDE 0.9% 1,000 ML IV ONE (02:33)
[2023-05-21] MEDS: ONDANSETRON 4 MG/2 ML VIAL IVP STA (02:33)
[2023-05-21] MEDS: KETOROLAC 15 MG/ML 1 ML VIAL IVP STA (02:35)
[2023-05-21] MEDS: cefTRIAXone IN SWFI 1,000 MG/10 ML SYRINGE IVP STA (02:40)
[2023-05-21] MEDS: ORPHENADRINE 30 MG/ML 2 ML VIAL IVP STA (02:59)
[2023-05-21] MEDS ORDERED: METOCLOPRAMIDE 5 MG/ML 2 ML VIAL IVP STA (03:01)
[2023-05-21 03:02] LABS: ALT 83 U/L (4-34); AST 131 U/L (14-36); African American GFR (CKD) >90 (>60 ml/min/1.73 sqM); Albumin 4.8 g/dL (3.5-5.0); Alkaline Phosphatase 109 U/L (38-126); Amylase 55 U/L (30-110); Anion Gap 10 mmol/L; Blood Urea Nitrogen 14 mg/dL (7-17); Calcium 10.6 mg/dL (8.4-10.2); Carbon Dioxide 25 mmol/L (22-30); Chloride 103 mmol/L (98-107); Glucose 138 mg/dL (74-99); Lipase 77 U/L (23-300); Non-African American GFR(CKD) >90 (>60 ml/min/1.73 sqM); Potassium 3.6 mmol/L (3.5-5.1); Sodium 138 mmol/L (137-145); Total Bilirubin 1.2 mg/dL (0.2-1.3)
[2023-05-21] MEDS: LIDOCAINE 4% PATCH TOPICAL ONE (03:02)
[2023-05-21 03:26] VITALS: BP 143/96; PULSE 84
--- NOTE | 2023-05-21 03:27 | ED ---
Female Urogenital HPI - General Chief complaint: Urogenital Stated complaint: bladder infection/kidney infection Time Seen by Provider: 05/21/23 01:38 Source: patient Mode of arrival: ambulatory Limitations: no limitations - History of Present Illness Initial comments: 57-year-old female presenting with chief complaint of nausea and vomiting. Patient has had nausea vomiting over the last 2 days. She has been dealing with a chronic UTI. She has been on Macrobid 4 times in the last month. Today she is having some lower back pain bilaterally. She admits to chills. She has an appointment with urology scheduled for June. She has nonspecific abdominal discomfort. - Related Data Home Medications Medication Instructions Recorded Confirmed Omeprazole 40 mg PO AC-BRKFST 08/01/15 12/23/22 Simvastatin [Zocor] 20 mg PO DAILY 08/01/15 12/23/22 Venlafaxine HCl [Effexor XR] 75 mg PO BID 05/20/20 12/23/22 atenoloL [Tenormin] 50 mg PO QAM 05/20/20 12/23/22 busPIRone HCL 15 mg PO BID 05/20/20 12/23/22 hydroCHLOROthiazide 25 mg PO DAILY 05/20/20 12/23/22 Losartan Potassium [Cozaar] 100 mg PO QAM 08/18/20 12/23/22 Previous Rx's Medication Instructions Recorded diazePAM [Valium] 5 mg PO DAILY PRN 1 Days #2 tab 12/23/22 Cephalexin [Keflex] 500 mg PO Q12HR 14 Days #28 cap 05/21/23 Ondansetron Odt [Zofran Odt] 4 mg PO Q8HR PRN #20 tab 05/21/23 Allergies Allergy/AdvReac Type Severity Reaction Status Date / Time morphine Allergy Itching Verified 05/21/23 01:35 Penicillins Allergy Itching Verified 05/21/23 01:35 sulfamethoxazole Allergy Unknown Verified 05/21/23 01:35 [From Bactrim] trimethoprim [From Bactrim] Allergy Unknown Verified 05/21/23 01:35 ciprofloxacin [From Cipro] AdvReac Unknown Nausea Verified 05/21/23 01:35 Review of Systems ROS Statement: Those systems with pertinent positive or pertinent negative responses have been documented in the HPI. ROS Other: All systems not noted in ROS Statement are negative. Past Medical History Past Medical History: GERD/Reflux, Hyperlipidemia, Hypertension, Osteoarthritis (OA) Additional Past Medical History / Comment(s): hx colitis, DDD, chronic low back pain, hypothyroidism (resolved with 40 pound weight loss) History of Any Multi-Drug Resistant Organisms: None Reported Past Surgical History: Breast Surgery, Joint Replacement, Orthopedic Surgery, Uterine Ablation Additional Past Surgical History / Comment(s): bilateral breast reduction x2, bone spur right hip, R hip arthroplasty, panniculectomy, D&C , colonoscopy, lumbar epidural injections, TOTAL RIGHT HIP (2019), CATARACT LEFT EYE Past Anesthesia/Blood Transfusion Reactions: No Reported Reaction Additional Past Anesthesia/Blood Transfusion Reaction / Comment(s): . Past Psychological History: Depression Smoking Status: Never smoker Past Alcohol Use History: Daily Past Drug Use History: Marijuana - Past Family History Mother Family Medical History: Cancer Additional Family Medical History / Comment(s): at age 63 from LUNG CANCER Father Family Medical History: Hypertension General Exam Limitations: no limitations General appearance: alert, in no apparent distress Head exam: Present: atraumatic, normocephalic Eye exam: Present: normal appearance Neck exam: Present: normal inspection Respiratory exam: Present: normal lung sounds bilaterally. Absent: respiratory distress, wheezes, rales, rhonchi, stridor Cardiovascular Exam: Present: regular rate, normal rhythm, normal heart sounds. Absent: systolic murmur, diastolic murmur, rubs, gallop, clicks GI/Abdominal exam: Present: soft, tenderness (Diffuse tenderness). Absent: distended, guarding, rebound, rigid Back exam: Absent: CVA tenderness (R), CVA tenderness (L) Neurological exam: Present: alert, oriented X3 Psychiatric exam: Present: normal affect, normal mood Skin exam: Present: warm, dry Course Vital Signs 05/21/23 05/21/23 01:31 03:03 Temperature 97.7 F Pulse Rate 90 84 Respiratory 18 18 Rate Blood Pressure 148/103 143/96 O2 Sat by Pulse 99 100 Oximetry Medical Decision Making - Medical Decision Making Was pt. sent in by a medical professional or institution (, PA, FLOTATION TENDER, urgent care, hospital, or fci...) When possible be specific @ -No Did you speak to anyone other than the patient for history (EMS, parent, family, police, friend...)? What history was obtained from this source @ -No Did you review nursing and triage notes (agree or disagree)? Why? @ -I reviewed and agree with nursing and triage notes Were old charts reviewed (outside hosp., previous admission, EMS record, old EKG, old radiological studies, urgent care reports/EKG's, fci records)? Report findings @ -No old charts were reviewed Differential Diagnosis (chest pain, altered mental status, abdominal pain women, abdominal pain men, vaginal bleeding, weakness, fever, dyspnea, syncope, he adache, dizziness, GI bleed, back pain, seizure, CVA, palpatations, mental health, musculoskeletal)? @ -MDM Differential Abdominal Pain Women: Appendicitis, Cholecystitis, diverticulosis, ischemic bowel, pancreatitis, hepatitis, UTI, gastroenteritis, AAA, incarcerated hernia, bowel obstruction, co nstipation, inflammatory bowel, hepatitis, peptic ulcer disease, splenic infarction, perforated viscus, vulvitis, ovarian torsion, PID, kidney stone, placenta abruption... This is not meant to be an all-inclusive list EKG interpreted by me (3pts min.). @ -As above X-rays interpreted by me (1pt min.). @ -None done CT interpreted by me (1pt min.). @ -None done U/S interpreted by me (1pt. min.). @ -None done What testing was considered but not performed or refused? (CT, X-rays, U/S, labs)? Why? @ -None What meds were considered but not given or refused? Why? @ -None Did you discuss the management of the patient with other professionals (professionals i.e. , PA, FLOTATION TENDER, lab, RT, psych nurse, social service technician, barmaid, teacher, chief clinical officer, immigration case worker)? Give summary @ -No Was smoking cessation discussed for >3mins.? @ -No Was critical care preformed (if so, how long)? @ -No Were there social determinants of health that impacted care today? How? (Homelessness, low income, unemployed, alcoholism, drug addiction, transportation, low edu. Level, literacy, decrease access to med. care, senior care, rehab)? @ -No Was there de-escalation of care discussed even if they declined (Discuss DNR or withdrawal of care, Hospice)? DNR status @ -No What co-morbidities impacted this encounter? (DM, HTN, Smoking, COPD, CAD, Cancer, CVA, ARF, Chemo, Hep., AIDS, mental health diagnosis, sleep apnea, morbid obesity)? @ -None Was patient admitted / discharged? Hospital course, mention meds given and route, prescriptions, significant lab abnormalities, going to OR and other pertinent info. @ -57-year-old female presenting with chief complaint of nausea and vomiting. Patient has been dealing with a chronic UTI. She has been on Macrobid 4 times in the last month. History and physical exam are conducted. No CVA tenderness. Patient has nonlocalized abdominal discomfort. Urine is positive for UTI, will be sent for culture. Lab work shows no leukocytosis or anemia. Patient is given Zofran, Toradol, Reglan, and Rocephin. She is also given 1 L fluid bolus. On reassessment she is resting showing no acute signs of distress. Given that the patient has had a failure of treatment with multiple rounds of Macrobid I suggest that we change her antibiotic to Keflex 500 mg twice a day. She is sent Keflex and Zofran to her pharmacy. She will follow-up with her PCP. She also has a urology appointment scheduled for June. Discharged home. Follow-up with PCP. Report back to ER with any new or worsening symptoms. Discussed return parameters and answered all questions. Patient conveyed verbal understanding and agreed to the plan. I discussed this case in detail with my attending Dr. Hernandez Undiagnosed new problem with uncertain prognosis? @ -No Drug Therapy requiring intensive monitoring for toxicity (Heparin, Nitro, Insulin, Cardizem)? @ -No Were any procedures done? @ -No Diagnosis/symptom? @ -UTI Acute, or Chronic, or Acute on Chronic? @ -Acute Uncomplicated (without systemic symptoms) or Complicated (systemic symptoms)? @ -Uncomplicated Side effects of treatment? @ -No Exacerbation, Progression, or Severe Exacerbation? @ -No Poses a threat to life or bodily function? How? (Chest pain, [place], [place], pneumonia, PE, COPD, DKA, ARF, appy, cholecystitis, CVA, Diverticulitis, Homicidal, Suicidal, threat to staff... and all critical care pts) @ -Low likelihood - Lab Data Result diagrams: 05/21/23 02:27 05/21/23 02:27 Lab Results 05/21/23 05/21/23 05/21/23 Range/Units 01:40 02:27 02:27 WBC 8.1 (3.8-10.6) k/uL RBC 4.86 (3.80-5.40) m/uL Hgb 15.5 (11.4-16.0) gm/dL Hct 45.7 (34.0-46.0) % MCV 94.0 (80.0-100.0) fL MCH 32.0 (25.0-35.0) pg MCHC 34.0 (31.0-37.0) g/dL RDW 13.0 (11.5-15.5) % Plt Count 245 (150-450) k/uL MPV 6.6 Neutrophils % 68 % Lymphocytes % 22 % Monocytes % 6 % Eosinophils % 2 % Basophils % 1 % Neutrophils # 5.5 (1.3-7.7) k/uL Lymphocytes # 1.8 (1.0-4.8) k/uL Monocytes # 0.5 (0-1.0) k/uL Eosinophils # 0.2 (0-0.7) k/uL Basophils # 0.1 (0-0.2) k/uL Sodium 138 (137-145) mmol/L Potassium 3.6 (3.5-5.1) mmol/L Chloride 103 (98-107) mmol/L Carbon Dioxide 25 (22-30) mmol/L Anion Gap 10 mmol/L BUN 14 (7-17) mg/dL Creatinine 0.60 (0.52-1.04) mg/dL Est GFR (CKD-EPI)AfAm >90 (>60 ml/min/1.73 sqM) Est GFR (CKD-EPI)NonAf >90 (>60 ml/min/1.73 sqM) Glucose 138 H (74-99) mg/dL Calcium 10.6 H (8.4-10.2) mg/dL Total Bilirubin 1.2 (0.2-1.3) mg/dL AST 131 H (14-36) U/L ALT 83 H (4-34) U/L Alkaline Phosphatase 109 (38-126) U/L Total Protein 8.0 (6.3-8.2) g/dL Albumin 4.8 (3.5-5.0) g/dL Amylase 55 (30-110) U/L Lipase 77 (23-300) U/L Urine Color [place] Urine Appearance Slightly Cloudy H (Clear) Urine RBC 116 H (0-5) /hpf Urine WBC >182 H (0-5) /hpf Urine WBC Clumps Many H (None) /hpf Ur Squamous Epith Cells 219 H (0-4) /hpf Amorphous Sediment Rare H (None) /hpf Hyaline Casts 27 H (0-2) /lpf Urine Mucus Many H (None) /hpf Disposition Clinical Impression: Urinary tract infection Disposition: HOME SELF-CARE Condition: Good Instructions (If sedation given, give patient instructions): Urinary Tract Infection in Women (ED) Additional Instructions: Follow-up with PCP and urology. Report back to ER with any new or worsening symptoms. Prescriptions: Cephalexin [Keflex] 500 mg PO Q12HR 14 Days #28 cap Ondansetron Odt [Zofran Odt] 4 mg PO Q8HR PRN #20 tab PRN Reason: Nausea Is patient prescribed a controlled substance at d/c from ED?: No Referrals: Zev Mathis MD [Primary Care Provider] - 1-2 days Kenneth Franks MD [STAFF PHYSICIAN] - 1-2 days Time of Disposition: 03:27
== END 2023-05-21 03:56 | disposition home or self-care (01) ==
LOC: EC 01:26
DX: N39.0 Urinary tract infection, site not specified (principal); F12.90 Cannabis use, unspecified, uncomplicated; Z88.5 Allergy status to narcotic agent; Z88.2 Allergy status to sulfonamides; Z88.1 Allergy status to other antibiotic agents; Z88.0 Allergy status to penicillin; Z88.8 Allergy status to other drugs, medicaments and biological substances
CPT/HCPCS: 36415; 80053; 82150; 83690; 85025; 81001; 87086; 87077; 87186; 99284; 96374; 96375 ×3; 96361; J2360; J2405; J0696; J1885

== ENCOUNTER → 2023-07-06 | Outpatient (CLI) | payer BC ==
--- NOTE | 2023-07-06 14:18 | US ---
EXAMINATION TYPE: US kidneys/renal and bladder DATE OF EXAM: 07/06/2023 COMPARISON: 07/08/2020 CLINICAL INDICATION: Female, 57 years old with history of N39.0 RECURRENT UTI'S; Asymptomatic recurri ng UTIs since december; Hx HTN and abdominoplasty EXAM MEASUREMENTS: Right Kidney: 9.3 x 5.6 x 5.0 cm Left Kidney: 8.9 x 4.8 x 4.4 cm Post Void Residual Volume: 0 mL Right Kidney: wnl Left Kidney: wnl Bladder: wnl Bilateral Jets seen: Yes Normal Post Void Residual: Yes There is no evidence for hydronephrosis at this point in time. No nephrolithiasis is seen. No ayesha s are identified. The urinary bladder is anechoic. Bilateral ureteral jets are seen. IMPRESSION: No evidence for acute process.
== END | disposition home or self-care (01) ==
LOC: RADUSWWP 13:39
PROVIDERS: ATTEND Family Medicine
DX: N39.0 Urinary tract infection, site not specified (principal); I10 Essential (primary) hypertension
CPT/HCPCS: 76770

== ENCOUNTER 2023-09-04 19:00 | Emergency (ER) | payer BC ==
[2023-09-04 19:08] VITALS: TEMP 98.5
[2023-09-04] MEDS: HYDROmorphone 1 MG/ML 1 ML SYRINGE IVP STA (19:33)
--- NOTE | 2023-09-04 20:09 | XR ---
EXAMINATION TYPE: XR Hip LT and AP Pelvis DATE OF EXAM: 09/04/2023 7:54 PM CLINICAL INDICATION:Female, 57 years old with history of pain; [facility] COMPARISON: None. TECHNIQUE: XR Hip LT and AP Pelvis; hip was examined in the frontal and lateral projections and a AP pelvis. FINDINGS: No evidence for acute process, joint dislocation or significant soft tissue swelling. Bilateral hip prostheses appear in appropriate position. No evidence of fracture. IMPRESSION: 1. No acute process. 2. Bilateral hip arthroplasties without evidence of fracture or loosening. No dislocation identified
[2023-09-04 20:44] VITALS: PULSE 107; RESP 18
[2023-09-04] MEDS: KETOROLAC 15 MG/ML 1 ML VIAL IVP STA (20:45)
--- NOTE | 2023-09-04 21:26 | ED ---
General Adult HPI - General Chief complaint: Extremity Injury, Upper Stated complaint: dislocated hip Time Seen by Provider: 09/04/23 19:19 Source: patient Mode of arrival: EMS Limitations: no limitations - History of Present Illness Initial comments: 57-year-old female presenting with chief complaint of left hip and groin pain. Had a recent hip replacement at. A few days ago she had sudden onset pain and was seen in the ER. She was found to have a dislocated hip. This evening she developed pain that felt similar. This happened while she was sitting down. She has no swelling to the leg or discoloration. No numbness or tingling. No chest pain or difficulty breathing. - Related Data Home Medications Medication Instructions Recorded Confirmed Omeprazole 40 mg PO AC-BRKFST 08/01/15 12/23/22 Simvastatin [Zocor] 20 mg PO DAILY 08/01/15 12/23/22 Venlafaxine HCl [Effexor XR] 75 mg PO BID 05/20/20 12/23/22 atenoloL [Tenormin] 50 mg PO QAM 05/20/20 12/23/22 busPIRone HCL 15 mg PO BID 05/20/20 12/23/22 hydroCHLOROthiazide 25 mg PO DAILY 05/20/20 12/23/22 Losartan Potassium [Cozaar] 100 mg PO QAM 08/18/20 12/23/22 Previous Rx's Medication Instructions Recorded diazePAM [Valium] 5 mg PO DAILY PRN 1 Days #2 tab 12/23/22 Cephalexin [Keflex] 500 mg PO Q12HR 14 Days #28 cap 05/21/23 Ondansetron Odt [Zofran Odt] 4 mg PO Q8HR PRN #20 tab 05/21/23 Allergies Allergy/AdvReac Type Severity Reaction Status Date / Time morphine Allergy Itching Verified 09/04/23 19:08 Penicillins Allergy Itching Verified 09/04/23 19:08 ciprofloxacin [From Cipro] AdvReac Unknown Nausea Verified 09/04/23 19:08 Review of Systems ROS Statement: Those systems with pertinent positive or pertinent negative responses have been documented in the HPI. ROS Other: All systems not noted in ROS Statement are negative. Past Medical History Past Medical History: GERD/Reflux, Hyperlipidemia, Hypertension, Osteoarthritis (OA) Additional Past Medical History / Comment(s): hx colitis, DDD, chronic low back pain, hypothyroidism (resolved with 40 pound weight loss) History of Any Multi-Drug Resistant Organisms: None Reported Past Surgical History: Breast Surgery, Joint Replacement, Orthopedic Surgery, Uterine Ablation Additional Past Surgical History / Comment(s): bilateral breast reduction x2, bone spur right hip, R hip arthroplasty, panniculectomy, D&C , colonoscopy, lumbar epidural injections, TOTAL RIGHT HIP (2019), CATARACT LEFT EYE Past Anesthesia/Blood Transfusion Reactions: No Reported Reaction Additional Past Anesthesia/Blood Transfusion Reaction / Comment(s): . Past Psychological History: Depression Smoking Status: Never smoker Past Alcohol Use History: Daily Past Drug Use History: Marijuana - Past Family History Mother Family Medical History: Cancer Additional Family Medical History / Comment(s): at age 63 from LUNG CANCER Father Family Medical History: Hypertension General Exam Limitations: no limitations General appearance: alert, in no apparent distress Head exam: Present: atraumatic, normocephalic Eye exam: Present: normal appearance, EOMI Neck exam: Present: normal inspection. Absent: meningismus Respiratory exam: Absent: respiratory distress Extremities exam: Present: normal inspection, tenderness, normal capillary refill (2+ pedal pulses bilaterally). Absent: full ROM, pedal edema, joint swelling Neurological exam: Present: alert, oriented X3 Psychiatric exam: Present: normal affect, normal mood Skin exam: Present: warm, dry Course Vital Signs 09/04/23 09/04/23 09/04/23 19:05 19:21 20:41 Temperature 98.5 F Pulse Rate 100 115 H 107 H Respiratory 25 H 22 18 Rate Blood Pressure 141/104 172/99 151/103 O2 Sat by Pulse 99 100 96 Oximetry 09/04/23 21:35 Temperature Pulse Rate 107 H Respiratory 18 Rate Blood Pressure 138/96 O2 Sat by Pulse 97 Oximetry Medical Decision Making - Medical Decision Making Was pt. sent in by a medical professional or institution (, PA, PERFORMANCE IMPROVEMENT COORDINATOR, urgent care, hospital, or prison...) When possible be specific @ -[No] Did you speak to anyone other than the patient for history (EMS, parent, family, police, friend...)? What history was obtained from this source @ -[No] Did you review nursing and triage notes (agree or disagree)? Why? @ -[I reviewed and agree with nursing and triage notes] Were old charts reviewed (outside hosp., previous admission, EMS record, old EKG, old radiological studies, urgent care reports/EKG's, prison records)? Report findings @ -[No old charts were reviewed] Differential Diagnosis (chest pain, altered mental status, abdominal pain women, abdominal pain men, vaginal bleeding, weakness, fever, dyspnea, syncope, headache, dizziness, GI bleed, back pain, seizure, CVA, palpatations, mental health, musculoskeletal)? @ -Differential Musculoskeletal Muscular strain, contusion, ligament sprain, fracture, arthritis, septic arthritis, bursitis, cellulitis, muscle spasm, nerve compression, DVT, arterial occlusion, herpes zoster, electrolyte abnormality, tumor.... This is not meant to be in all inclusive list EKG interpreted by me (3pts min.). @ -[As above] X-rays interpreted by me (1pt min.). @ -X-ray shows no acute process. Bilateral hip arthroplasties without evidence of fracture or loosening. No dislocation identified. CT interpreted by me (1pt min.). @ -[None done] U/S interpreted by me (1pt. min.). @ -[None done] What testing was considered but not performed or refused? (CT, X-rays, U/S, labs)? Why? @ -[None] What meds were considered but not given or refused? Why? @ -[None] Did you discuss the management of the patient with other professionals (professionals i.e. , PA, PERFORMANCE IMPROVEMENT COORDINATOR, lab, RT, psych nurse, social work coordinator, fusing machine feeder, teacher, geological technical officer, welfare case worker)? Give summary @ -[No] Was smoking cessation discussed for >3mins.? @ -[No] Was critical care preformed (if so, how long)? @ -[No] Were there social determinants of health that impacted care today? How? (Homelessness, low income, unemployed, alcoholism, drug addiction, transportation, low edu. Level, literacy, decrease access to med. care, long term, rehab)? @ -[No] Was there de-escalation of care discussed even if they declined (Discuss DNR or withdrawal of care, Hospice)? DNR status @ -[No] What co-morbidities impacted this encounter? (DM, HTN, Smoking, COPD, CAD, Cancer, CVA, ARF, Chemo, Hep., AIDS, mental health diagnosis, sleep apnea, morbid obesity)? @ -[None] Was patient admitted / discharged? Hospital course, mention meds given and route, prescriptions, significant lab abnormalities, going to OR and other pertinent info. @ -57-year-old female presenting with chief complaint of hip pain. Feels similar to previous dislocation. No injury. On exam she is neurovascularly intact. X-rays negative for dislocation. She is provided with pain medication. States that she may have "overdid it" today and let the pain get away from her. She is ready for discharge home. Follow-up with PCP. Report back to ER with any new or worsening symptoms. Discussed return parameters and answered all questions. Patient conveyed verbal understanding and agreed to the plan. I discussed this case in detail with my attending Dr. Whitmore Undiagnosed new problem with uncertain prognosis? @ -[No] Drug Therapy requiring intensive monitoring for toxicity (Heparin, Nitro, Insulin, Cardizem)? @ -[No] Were any procedures done? @ -[No] Diagnosis/symptom? @ -Postoperative hip pain Acute, or Chronic, or Acute on Chronic? @ -Acute Uncomplicated (without systemic symptoms) or Complicated (systemic symptoms)? @ -Uncomplicated Side effects of treatment? @ -[No] Exacerbation, Progression, or Severe Exacerbation? @ -[No] Poses a threat to life or bodily function? How? (Chest pain, [place], [place], pneumonia, PE, COPD, DKA, ARF, appy, cholecystitis, CVA, Diverticulitis, Homicidal, Suicidal, threat to staff... and all critical care pts) @ -[No] Disposition Clinical Impression: Postoperative pain, acute, hip Disposition: HOME SELF-CARE Condition: Good Instructions (If sedation given, give patient instructions): Hip Pain (ED) Additional Instructions: Follow-up with your surgeon. Report back to ER with any new or worsening symptoms. Is patient prescribed a controlled substance at d/c from ED?: No Referrals: Zev Mathis MD [Primary Care Provider] - 1-2 days Time of Disposition: 21:26
[2023-09-04 21:38] VITALS: BP 138/96
== END 2023-09-04 21:46 | disposition home or self-care (01) ==
LOC: EC 19:00
DX: G89.18 Other acute postprocedural pain (principal); M25.552 Pain in left hip; F12.90 Cannabis use, unspecified, uncomplicated; Z88.0 Allergy status to penicillin; Z88.1 Allergy status to other antibiotic agents; Z88.8 Allergy status to other drugs, medicaments and biological substances
CPT/HCPCS: 73502; 99284; 96374; 96375; J1170; J1885

== ENCOUNTER 2023-09-08 10:13 | Emergency (ER) | payer BC ==
--- NOTE | 2023-09-08 11:05 | ED ---
General Adult HPI - General Chief complaint: Recheck/Abnormal Lab/Rx Stated complaint: Post Op Comp (Hip) Time Seen by Provider: 09/08/23 10:50 Source: patient, RN notes reviewed, old records reviewed Mode of arrival: wheelchair Limitations: no limitations - History of Present Illness Initial comments: This is a 57-year-old female who presents to the emergency department stating that she had hip surgery at [facility] at the end of July. Patient states since then she has had a dislocated hip and that has been reduced. Patient states this morning she got up and there was quite a bit of bloody fluid that came out of the distal aspect of the incision and she was concerned for infection though she had no redness no increased tenderness no warmth and no fever. Patient is able to move at the hip normally and states this was unable to be done when she had a dislocated hip - Related Data Home Medications Medication Instructions Recorded Confirmed Omeprazole 40 mg PO AC-BRKFST 08/01/15 12/23/22 Simvastatin [Zocor] 20 mg PO DAILY 08/01/15 12/23/22 Venlafaxine HCl [Effexor XR] 75 mg PO BID 05/20/20 12/23/22 atenoloL [Tenormin] 50 mg PO QAM 05/20/20 12/23/22 busPIRone HCL 15 mg PO BID 05/20/20 12/23/22 hydroCHLOROthiazide 25 mg PO DAILY 05/20/20 12/23/22 Losartan Potassium [Cozaar] 100 mg PO QAM 08/18/20 12/23/22 Previous Rx's Medication Instructions Recorded diazePAM [Valium] 5 mg PO DAILY PRN 1 Days #2 tab 12/23/22 Cephalexin [Keflex] 500 mg PO Q12HR 14 Days #28 cap 05/21/23 Ondansetron Odt [Zofran Odt] 4 mg PO Q8HR PRN #20 tab 05/21/23 Allergies Allergy/AdvReac Type Severity Reaction Status Date / Time morphine Allergy Itching Verified 09/08/23 10:16 Penicillins Allergy Itching Verified 09/08/23 10:16 ciprofloxacin [From Cipro] AdvReac Unknown Nausea Verified 09/08/23 10:16 Review of Systems ROS Statement: Those systems with pertinent positive or pertinent negative responses have been documented in the HPI. ROS Other: All systems not noted in ROS Statement are negative. Past Medical History Past Medical History: GERD/Reflux, Hyperlipidemia, Hypertension, Osteoarthritis (OA) Additional Past Medical History / Comment(s): hx colitis, DDD, chronic low back pain, hypothyroidism (resolved with 40 pound weight loss) History of Any Multi-Drug Resistant Organisms: None Reported Past Surgical History: Breast Surgery, Joint Replacement, Orthopedic Surgery, Uterine Ablation Additional Past Surgical History / Comment(s): bilateral breast reduction x2, bone spur right hip, R hip arthroplasty, panniculectomy, D&C , colonoscopy, lumbar epidural injections, TOTAL RIGHT HIP (2019), CATARACT LEFT EYE Past Anesthesia/Blood Transfusion Reactions: No Reported Reaction Additional Past Anesthesia/Blood Transfusion Reaction / Comment(s): . Past Psychological History: Depression Smoking Status: Never smoker Past Alcohol Use History: Daily Past Drug Use History: Marijuana - Past Family History Mother Family Medical History: Cancer Additional Family Medical History / Comment(s): at age 63 from LUNG CANCER Father Family Medical History: Hypertension General Exam - General Exam Comments Initial Comments: GENERAL: Patient is well-developed and well-nourished. Patient is nontoxic and well- hydrated and is in no acute distress. ENT: Neck is soft and supple. No significant lymphadenopathy is noted. Oropharynx is clear. Moist mucous membranes. Neck has full range of motion without eliciting any pain. EYES: The sclera were anicteric and conjunctiva were pink and moist. Extraocular movements were intact and pupils were equal round and reactive to light. Eyelids were unremarkable. PULMONARY: Unlabored respirations. Good breath sounds bilaterally. No audible rales rhonchi or wheezing was noted. CARDIOVASCULAR: There is a regular rate and rhythm without any murmurs gallops or rubs. ABDOMEN: Soft and nontender with normal bowel sounds. SKIN: Wound appears to be healing well aside from the distal aspect of the incision which is dehisced to about 4 mm NEUROLOGIC: Patient is alert and oriented x3. Cranial nerves II through XII are grossly intact. Motor and sensory are also intact. Normal speech, volume and content. Symmetrical smile. MUSCULOSKELETAL: Normal extremities with adequate strength and full range of motion. At the very distal aspect of the incision there is a opening approximately 4 elevated. And some minimal amount of old blood is coming out of that area. No indication of any infection around that area. LYMPHATICS: No significant lymphadenopathy is noted PSYCHIATRIC: Normal psychiatric evaluation. Limitations: no limitations Course Vital Signs 09/08/23 09/08/23 09/08/23 10:16 11:30 12:27 Temperature 98.2 F 98.6 F Pulse Rate 66 66 64 Respiratory 16 16 16 Rate Blood Pressure 116/79 123/90 126/89 O2 Sat by Pulse 99 96 Oximetry Medical Decision Making - Medical Decision Making EKG is interpreted by myself. EKG shows a sinus rhythm at 67 bpm CO interval 158 QRS is 90 QT interval 384 QTc is 399. Patient's EKG shows no ST segment elevation or depression. Was pt. sent in by a medical professional or institution (, [facility], [employer], urgent care, hospital, or senior care...) When possible be specific @ -No Did you speak to anyone other than the patient for history (EMS, parent, family, police, friend...)? What history was obtained from this source @ -No Did you review nursing and triage notes (agree or disagree)? Why? @ -I reviewed and agree with nursing and triage notes Were old charts reviewed (outside hosp., previous admission, EMS record, old EKG, old radiological studies, urgent care reports/EKG's, senior care records)? Report findings @ -No old charts were reviewed Differential Diagnosis? @ -Infected incision, seroma, hematoma, this is not an all-inclusive list EKG interpreted by me (3pts min.). @ -As above X-rays interpreted by me (1pt min.). @ -None done CT interpreted by me (1pt min.). @ -None done U/S interpreted by me (1pt. min.). @ -None done What testing was considered but not performed or refused? (CT, X-rays, U/S, labs)? Why? @ -None What meds were considered but not given or refused? Why? @ -None Did you discuss the management of the patient with other professionals (professionals i.e. [facility], [employer], lab, RT, psych nurse, social media job titles, sales engineering manager, teacher, contact officer, case management social worker)? Give summary @ -No Was smoking cessation discussed for >3mins.? @ -No Was critical care preformed (if so, how long)? @ -No Were there social determinants of health that impacted care today? How? (Homelessness, low income, unemployed, alcoholism, drug addiction, transportation, low edu. Level, literacy, decrease access to med. care, intermediate, rehab)? @ -No Was there de-escalation of care discussed even if they declined (Discuss DNR or withdrawal of care, Hospice)? DNR status @ -No What co-morbidities impacted this encounter? (DM, HTN, Smoking, COPD, CAD, Cancer, CVA, ARF, Chemo, Hep., AIDS, mental health diagnosis, sleep apnea, morbid obesity)? @ -None Was patient admitted / discharged? Hospital course, mention meds given and route, prescriptions, significant lab abnormalities, going to OR and other pertinent info. @ -Patient's wound dehisced at the very distal aspect of the incision there was some old blood coming from the wound. There is no signs of infection. There was no white count no fever patient will have a dressing placed and follow-up with her surgeon Undiagnosed new problem with uncertain prognosis? @ -No Drug Therapy requiring intensive monitoring for toxicity (Heparin, Nitro, Insulin, Cardizem)? @ -No Were any procedures done? @ -No Diagnosis/symptom? @ -Hematoma Acute, or Chronic, or Acute on Chronic? @ -Chronic Uncomplicated (without systemic symptoms) or Complicated (systemic symptoms)? @ -Uncomplicated Side effects of treatment? @ -No Exacerbation, Progression, or Severe Exacerbation? @ -No Poses a threat to life or bodily function? How? (Chest pain, USA, SC, pneumonia, PE, COPD, DKA, ARF, appy, cholecystitis, CVA, Diverticulitis, Homicidal, Suicidal, threat to staff... and all critical care pts) @ -No - Lab Data Result diagrams: 09/08/23 11:09/08/23 11: Lab Results 09/08/23 09/08/23 09/08/23 Range/Units 11: 11: 11: WBC 7.7 (3.8-10.6) k/uL RBC 3.89 (3.80-5.40) m/uL Hgb 12.2 (11.4-16.0) gm/dL Hct 37.2 (34.0-46.0) % MCV 95.6 (80.0-100.0) fL MCH 31.3 (25.0-35.0) pg MCHC 32.8 (31.0-37.0) g/dL RDW 12.8 (11.5-15.5) % Plt Count 366 (150-450) k/uL MPV 7.0 Neutrophils % 68 % Lymphocytes % 21 % Monocytes % 5 % Eosinophils % 4 % Basophils % 1 % Neutrophils # 5.3 (1.3-7.7) k/uL Lymphocytes # 1.6 (1.0-4.8) k/uL Monocytes # 0.4 (0-1.0) k/uL Eosinophils # 0.3 (0-0.7) k/uL Basophils # 0.1 (0-0.2) k/uL Sodium 138 (137-145) mmol/L Potassium 4.1 (3.5-5.1) mmol/L Chloride 106 (98-107) mmol/L Carbon Dioxide 24 (22-30) mmol/L Anion Gap 8 mmol/L BUN 19 H (7-17) mg/dL Creatinine 0.65 (0.52-1.04) mg/dL Est GFR (CKD-EPI)AfAm >90 (>60 ml/min/1.73 sqM) Est GFR (CKD-EPI)NonAf >90 (>60 ml/min/1.73 sqM) Glucose 105 H (74-99) mg/dL Plasma Lactic Acid Cesar 1.2 (0.7-2.0) mmol/L Calcium 10.2 (8.4-10.2) mg/dL Total Bilirubin 0.7 (0.2-1.3) mg/dL AST 47 H (14-36) U/L ALT 29 (4-34) U/L Alkaline Phosphatase 83 (38-126) U/L Total Protein 6.5 (6.3-8.2) g/dL Albumin 3.9 (3.5-5.0) g/dL Disposition Clinical Impression: Hematoma of hip Disposition: HOME SELF-CARE Condition: Good Instructions (If sedation given, give patient instructions): Hematoma (ED) Is patient prescribed a controlled substance at d/c from ED?: No Referrals: Zev Mathis MD [Primary Care Provider] - 1-2 days Time of Disposition: 13:12
[2023-09-08 11:56] LABS: ALT 29 U/L (4-34); AST 47 U/L (14-36); African American GFR (CKD) >90 (>60 ml/min/1.73 sqM); Albumin 3.9 g/dL (3.5-5.0); Alkaline Phosphatase 83 U/L (38-126); Anion Gap 8 mmol/L; Blood Urea Nitrogen 19 mg/dL (7-17); Calcium 10.2 mg/dL (8.4-10.2); Carbon Dioxide 24 mmol/L (22-30); Chloride 106 mmol/L (98-107); Glucose 105 mg/dL (74-99); Non-African American GFR(CKD) >90 (>60 ml/min/1.73 sqM); Potassium 4.1 mmol/L (3.5-5.1); Sodium 138 mmol/L (137-145); Total Bilirubin 0.7 mg/dL (0.2-1.3); Total Protein 6.5 g/dL (6.3-8.2)
[2023-09-08 12:06] LABS: Basophils # (A) 0.1 k/uL (0-0.2); Basophils % (A) 1 %; Eosinophils # (A) 0.3 k/uL (0-0.7); Eosinophils % (A) 4 %; HCT 37.2 % (34.0-46.0); HGB 12.2 gm/dL (11.4-16.0); Lymphocytes # (A) 1.6 k/uL (1.0-4.8); Lymphocytes % (A) 21 %; MCH 31.3 pg (25.0-35.0); MCHC 32.8 g/dL (31.0-37.0); MCV 95.6 fL (80.0-100.0); Monocytes # (A) 0.4 k/uL (0-1.0); Monocytes % (A) 5 %; Neutrophils # (A) 5.3 k/uL (1.3-7.7); Neutrophils % (A) 68 %; Platelet Count 366 k/uL (150-450); RBC 3.89 m/uL (3.80-5.40); RDW 12.8 % (11.5-15.5); WBC 7.7 k/uL (3.8-10.6)
[2023-09-08] MEDS: traMADol 50 MG TAB PO STA (12:40)
[2023-09-08] MEDS: BACITRACIN OINT 1 EACH PACKET TOPICAL ONE (13:20)
[2023-09-08 13:32] VITALS: BP 129/81; PULSE 68; RESP 18; TEMP 98.1
== END 2023-09-08 13:31 | disposition home or self-care (01) ==
LOC: EC 10:13
DX: S70.01XA Contusion of right hip, initial encounter (principal); Z88.0 Allergy status to penicillin; Z88.1 Allergy status to other antibiotic agents; Z88.5 Allergy status to narcotic agent; X58.XXXA Exposure to other specified factors, initial encounter
CPT/HCPCS: 36415; 80053; 83605; 85025; 87040; 93005; 99283

== ENCOUNTER → 2024-02-08 | Outpatient (CLI) | payer BC ==
--- NOTE | 2024-02-12 04:58 | MM ---
Reason for Exam: Screening (asymptomatic). Last screening mammogram was performed 12 month(s) ago. Patient History: Menarche at age 15. Patient has no children. Postmenopausal. Hormonal Contraceptives, starting at age 43 for 9 years. 06/01/2006, Bilateral Reduction. 10/16/2018, Benign Core Biopsy on the right side. 05/26/2007, Benign Core Biopsy on the right side. Risk Values: Ly 5 year model risk: 2.0%. NCI Lifetime model risk: 11.7%. Prior Study Comparison: 01/09/2021 Left Diagnostic Mammogram, [facility]. 01/28/2022 Bilateral MG 3D screening mammo w/cad, [facility]. 01/31/2023 Bilateral MG 3D screening mammo w/cad, [facility]. Tissue Density: There are scattered areas of fibroglandular density. Findings: Analyzed By CAD. The pattern is symmetrical. No significant interval change. No suspicious groups of microcalcifications, spiculated or lobular masses, architectural distortion or other secondary signs of malignancy are mammographically apparent. Overall Assessment: Benign, BI-RAD 2 Management: Screening Mammogram of both breasts in 1 year. A negative mammogram report should not preclude additional follow up of suspicious palpable abnormalities. Patient should continue monthly self breast exam. A clinical breast exam by your physician is recommended on an annual basis and results should be correlated with mammographic findings. Note on Ly scores and lifetime risk: 1. A Ly score greater than 3% is considered moderate risk. If this is the case, consider specialist referral to assess eligibility for a risk reducing agent. 2. If overall lifetime risk for the development of breast cancer is 20% or higher, the patient may qualify for future screening with alternating mammogram and breast MRI. [facility], , 02/12/2024 4:56 AM. Electronically signed and approved by: Mitesh Rangel D.O. Radiologis
== END | disposition home or self-care (01) ==
LOC: RADMAMWWP 14:18
PROVIDERS: ATTEND Family Medicine
DX: Z12.31 Encounter for screening mammogram for malignant neoplasm of breast (principal); R92.323 Mammographic fibroglandular density, bilateral breasts; Z78.0 Asymptomatic menopausal state
CPT/HCPCS: 77063; 77067